=== PATIENT | male | born 1935 | race Caucasian/White ===

== ENCOUNTER 2019-10-21 18:35 | Inpatient (IN) | payer BC ==
[~2019-10-21] VITALS: Ht 180.3 cm; Wt 96.9 kg
[2019-10-21] MEDS: SODIUM CHLORIDE 0.9% 1,000 ML IV SCH (01:00)
[~2019-10-21 18:35] MED LIST: FLUT250M2 INH
[2019-10-21] MEDS ORDERED: ATROPINE SULF 1 MG/10ml SYR IV ONE ×2 (19:30→21:45)
[2019-10-21 19:52] LABS: Basophils # (auto) 0 10 ^3/uL (0-0.2); Basophils % (auto) 0.3 % (0.0-2.0); Eosinophils # (auto) 0.3 10 ^3/uL (0-0.8); Eosinophils % (auto) 3.6 % (0.0-7.0); Hematocrit 47.1 % (41.0-53.0); Hemoglobin 15.4 g/dL (13.5-17.5); Lymphocytes # (auto) 1.4 10 ^3/uL (0.4-5.4); Lymphocytes % (auto) 18.2 % (10.0-50.0); Mean Corpuscular Hemoglobin 29.3 pg (28.0-32.0); Mean Corpuscular Hgb Conc. 32.7 g/dL (32.0-36.0); Mean Corpuscular Volume 89.4 fL (80.0-100.0); Monocytes # (auto) 0.5 10 ^3/uL (0-1.3); Monocytes % (auto) 6.3 % (0.0-12.0); Neutrophils # (auto) 5.6 10 ^3/uL (1.6-8.6); Neutrophils % (auto) 71.6 % (37.0-80.0); Nucleated Red Blood Cells % 0.2 %; Platelet Count (auto) 133 10^3/uL (140-450); Red Blood Cells 5.27 10^6/uL (4.5-5.90); Red Cell Distribution Width 14.6 % (11.8-14.3); White Blood Cell 7.8 10^3/uL (4.4-10.8)
[2019-10-21 20:04] LABS: Albumin 3.5 g/dL (3.4-5.0); Anion Gap 6 (5-15); Blood Urea Nitrogen 21 mg/dL (7-18); Calcium 8.7 mg/dL (8.5-10.1); Carbon Dioxide 26 mmol/L (21-32); Chloride 109 mmol/L (98-107); Glucose 125 mg/dL (74-106); Potassium 4.4 mmol/L (3.5-5.1); Sodium 141 mmol/L (136-145)
[2019-10-21 20:07] LABS: INR 1.02 (0.9-1.15); Partial Thromboplastin Time 24.7 sec (23.64-32.05)
[2019-10-21 20:08] LABS: Alanine Aminotransferase 23 U/L (16-61); Alkaline Phosphatase 70 U/L (45-117); Aspartate Aminotransferase 21 U/L (15-37); BUN/Creatinine Ratio 17.1; Bilirubin, Total 1.5 mg/dL (0.2-1.0); GFR African American 72 mL/min; GFR Non-African American 60 mL/min; Total Protein 7.4 g/dL (6.4-8.2)
[2019-10-21] MEDS ORDERED: CALCIUM CHL 100MG/ML 1,000 MG in D5W 5% 100 ML IV ONE (20:45)
[2019-10-21] MEDS ORDERED: CALCIUM CHLOR(10%) 100MG/ML 10ML SYRINGE IV ONE (20:54)
[2019-10-21] MEDS ORDERED: ONDANSETRON HCL 4 MG/2 ML VIAL IV PRN (21:30)
[2019-10-21] MEDS ORDERED: DOCUSATE SOD 100 MG CAP PO PRN (21:30)
[2019-10-21] MEDS ORDERED: NITROGLYCERIN 0.4 MG SL TAB SL PRN (21:30)
[2019-10-21] MEDS ORDERED: MORPHINE SULF INJ 2 MG/ML SYRINGE 1ML IV PRN (21:30)
[2019-10-22] VITALS (55 sets, daily range): BP systolic 46–175; BP diastolic 20–109
--- NOTE | 2019-10-22 01:00 | NUR ---
Admit to ICU from [facility] admitted to ICU via [place] on athletic monitor. Patient transfered to bed,connected to monitors. Patient connected to ICU monitoring, weighed by bedscale, oriented to AUGUSTO HERRERA RN primary RN, unit. Patient has a heart rate of 26 upon arrival. RN closely monitoring patient on monitors. Patient currently complaining of no discomfort or distress, nor of any chest pain, light headedness or headache.
--- NOTE | 2019-10-22 01:20 | NUR ---
Hospitalist paged: Hospitalist was paged d/t patient continues to have a heart rate of 29 and a blood pressure of 46/27. New orders were obtained and verified.
[2019-10-22] MEDS ORDERED: DOBUTamine 1000MCG/ML 250 ML IV ONE (01:21)
[2019-10-22] MEDS ORDERED: ATROPINE SULFATE 1 MG/1 ML VIAL ONE (01:23)
[2019-10-22] MEDS: DOBUTamine 1000MCG/ML 250 ML IV SCH ×2 (01:30→07:13)
--- NOTE | 2019-10-22 02:00 | NUR ---
Patient continues with a irregular heart that ranges from the high 20's to high 40's and currently has a rate of 47. Patient remains asymptomatic at this time and RN continues to monitor and assess patient closely.
[2019-10-22 02:35] LABS: Calcium 8.6 mg/dL (8.5-10.1); Potassium 3.9 mmol/L (3.5-5.1)
[2019-10-22 02:38] LABS: BUN/Creatinine Ratio 15.7
--- NOTE | 2019-10-22 03:00 | NUR ---
Patient continues to be placed on supplemental oxygen at this time. Patient was noted to take off pulse ox. RN placed new pulse ox on patient and secured with co-band.
--- NOTE | 2019-10-22 03:40 | NUR ---
Oxygen: Patient was noted to de-sat to 86% on 2L NC. Patient was increased to 4L. Oxygen was noted to increase to 95%.
--- NOTE | 2019-10-22 04:00 | NUR ---
Patient continues with a irregular heart that ranges from the high 30's to high 50's and currently has a rate of 45. Patient remains asymptomatic at this time and RN continues to monitor and assess patient closely.
[2019-10-22] MEDS ORDERED: DONE10TA40 PO (04:03)
--- NOTE | 2019-10-22 05:45 | NUR ---
Patient continues with a irregular heart that ranges from the high 20's to high 40's and currently has a rate of 40. Patient remains asymptomatic at this time and RN continues to monitor and assess patient closely.
--- NOTE | 2019-10-22 07:45 | NUR ---
O2 SATS 98% ON O2 5L N/C. NO SOB. LUNGS CLEAR COTY. INSPIRATORY AND EXPIRATORY. DECREASED O2 TO 3L N/C, ADDED HUMIDIFIER. O2 SATS REMAIN 97%-98%. NO SIGNS OF RESP. DISTRESS
--- NOTE | 2019-10-22 09:15 | NUR ---
TECH AT BS FOR 2D ECHO.
--- NOTE | 2019-10-22 10:05 | NUR ---
DR. MCINTYRE Provider/Hospitalist at bedside. GAVE UPDATE ON PT. NEW ORDERS RECEIVED.
--- NOTE | 2019-10-22 10:22 | NUR ---
Avila catheter insertion Patient assessed and determined to be in need of avila catheter. Order obtained from DR. MIGUELINA TORO. Patient educated on catheter and reason for insertion. All questions answered. Avila catheter 16 guage Ethiopian inserted with clean sterile technique. Patient tolerated well.
--- NOTE | 2019-10-22 11:13 | NUR ---
ROQUE VALLECILLO HERE FOR CARDIO CONSULT. SPOKE WITH PT'S. AT AND GAVE UPDATE. SAID PT. WILL HAVE PPM INSERTION ON THIS COMING MON. AND TO HAVE SIGN CONSENTS, PT. HAS HX. OF DEMENTIA AND IS ONLY ORIENTED TO SELF AT THIS TIME.
[2019-10-22] MEDS ORDERED: DOPamine 1600MCG/ML D5W 250 ML IV SCH (11:15)
--- NOTE | 2019-10-22 11:20 | NUR ---
Family updated on pt status Family of OSMEL GALEANO updated on patient's status and condition. All questions and concerns addressed. verbalized understanding. VISITING AT WITH PERMISSION OF MADELYN STARK AUTO PARTS CLERK SILK SCREENER APPROVED FOR 1 FAMILY MEMBER TO VISIT WHICH IS HIS . DGT. IN LAW CALLED ME THIS AM AND WANTED TO VISIT, EXPLAINED THERE IS NO VISITING AT THIS TIME. SHE WANTED TO SPEAK WITH ADMINISTRATION AND INFORMED HER SHE NEEDS TO CALL [facility] AND SPEAK WITH METAL MACHINIST ON TODAY. MADELYN HURTADOLINE CAMERA OPERATOR SPOKE WITH MI REGARDING DTG. IN LAW WANTING TO VISIT PT. AND REQUESTED TO SPEAK WITH ADMINISTRATION AFTER SHE SPOKE WITH HER ON THE PHONE SHE SAID. MADELYN HURTADOLINE CAMERA OPERATOR SPOKE WITH JAIMEG. IN LAW ON THE PHONE WHEN SHE CALLED HER THIS AM WANTING TO VISIT PT. AND EXPLAINED POLICY THAT THE HOSPITAL IS NOT ALLOWING ANY VISITORS AT THIS TIME UNLESS END OF LIFE.
[2019-10-22 11:32] LABS: Urine Bacteria NONE SEEN /hpf (None Seen); Urine Blood TRACE /uL (Negative); Urine Mucus FEW (None Seen); Urine Specific Gravity 1.016 (1.001-1.035); Urine WBC 2 /hpf (0 - 3)
--- NOTE | 2019-10-22 11:55 | NUR ---
SIGNED CONSENTS FOR PPM INSERTION AND ANESTHESIA CONSENT FOR MODERATE SEDATION. PT. HAS HX. OF DEMENTIA AND CAN NOT SIGN FOR SELF.
--- NOTE | 2019-10-22 12:12 | NUR ---
DR. DODSON Provider/Hospitalist at bedside. GAVE UPDATE ON PT. ORDER TO D'C DOBUTAMINE GTT. AND PLACE PT. ON DOPAMINE GTT. AND TITRATE TO KEEP HR >60. PT. WAS TAKEN OFF DOBUTAMINE GTT. AND TITRATED UP TO 20 MCG. OF DOPAMINE GTT. IV. PT'S. HR CONTINUES TO BE IN THE MID TO UPPER 30'S TO LOW 40'S, 3RD. DEGREE AV BLOCK. SBP 90'S TO 120'S. DR. DODSON SAID HE WANTS PT. TO HAVE PPM TODAY AROUND 1300. [facility] PHYSICAL THERAPY TECHNICIAN NOTIFIED AND IS CALLING IN ANIMAL CARE GIVER TEAM. PT. HAS BEEN NPO SINCE ADMISSION, HAD FEW SIPS OF WATER LATE THIS AM.
[2019-10-22] MEDS ORDERED: VANCOMYCIN 1GM/250ML 250 ML IV ONE (13:15)
[2019-10-22] MEDS ORDERED: fentaNYL CITRATE 100 MCG/2 ML VL ONE (13:15)
[2019-10-22] MEDS ORDERED: LIDOCAINE 2%HCL (LOCAL ANESTH.) INJ 20ML MDV ONE (13:15)
[2019-10-22] MEDS ORDERED: MIDAZOLAM HCL 1MG/1ML-2 ML VIAL ONE (13:15)
[2019-10-22] MEDS ORDERED: IOHEXOL 350 MG/ML 100ML IJ ONE (13:15)
--- NOTE | 2019-10-22 13:45 | NUR ---
SIGNED CONSENTS FOR PPM INSERTION. MADELYN CHRISTOPHER HERE TO TAKE PT. TO FULL FASHIONED GARMENT KNITTER, GAVE REPORT. PT. IS ON DOPAMINE GTT. AT 20 MCG. HR 30'S, 3RD. DEGREE AV BLOCK. PT. IS NPO. TO FULL FASHIONED GARMENT KNITTER VIA BED ON [employer], O2 3L N/C.
[2019-10-22] MEDS: SODIUM CHLORIDE 0.9% 1,000 ML IV SCH ×2 (14:02→17:55)
[2019-10-22] MEDS ORDERED: VANCOMYCIN HCL 1000 MG VL ONE (14:11)
--- NOTE | 2019-10-22 15:17 | NUR ---
PT. RETURNED FROM GENERAL ASSEMBLER INSTALLER VIA BED, ATTACHED TO MANAGER SCHEDULING, O2 3L N/C. PPM TO LT. UPPER CHEST WITH DERMABOND TO SITE, WELL APPROXIMATED, OPEN TO AIR PER MD, NO ECCHYMOSIS, NO SWELLING, NO BLEEDING. ICE PACK TO LT. CHEST PPM SITE. LT. ARM IN SLING. PT. HAS HX. OF DEMENTIA, ORIENTED TO SELF ONLY, VERY FORGETFUL, DOES NOT FOLLOW INSTRUCTIONS. PACED 100%, HR IN THE 70'S. SBP 100'S. DOPAMINE GTT. BEING TITRATED OFF IN THE GENERAL ASSEMBLER INSTALLER, WILL CONTINUE TO TITRATE OFF. VSS.
--- NOTE | 2019-10-22 15:55 | NUR ---
PACED 100%, HR IN THE 70'S. SBP 100'S TO ONE TENS. TITRATED DOPAMINE GTT. OFF. MONITORING HR AND BP. PT. IS CONTINUOUSLY TAKING LT. ARM OUT OF SLING AND REMOVING ICE PACK TO LT. CHEST. PT. IS RESTLESS AT TIMES. DOES NOT FOLLOW COMMANDS OR COMPREHEND, HX. OF DEMENTIA, ORIENTED TO SELF ONLY AT THIS TIME.
--- NOTE | 2019-10-22 16:15 | NUR ---
PT. KEEPS REMOVING LT. ARM OUT OF SLING AND REACHING WITH LT. ARM. SM. BRUISE NOTED TO PACEMAKER SITE. PLACED ARM BACK IN SLING AGAIN, ICE PACK TO LT. CHEST IN PLACE. REDIRECTED PT., VERY FORGETFUL, ORIENTED TO SELF ONLY AT THIS TIME.
--- NOTE | 2019-10-22 16:20 | NUR ---
Called/paged Dr. MCINTYRE called re:. Waiting for call back. Continue care.
--- NOTE | 2019-10-22 16:45 | NUR ---
returned call Dr. MCINTYRE returned call AFTER 2ND. PAGE, updated on patient status and reason for call, orders received. Continue care.
--- NOTE | 2019-10-22 18:23 | NUR ---
ORDER TO GO TO TELE WITH SITTER. REPORT GIVEN TO MADELYN LEWIS. BELONGINGS WITH PT. VIA BED ON TELE#38, O2 3L N/C. WILL CALL PT'S. .
--- NOTE | 2019-10-22 19:30 | NUR ---
End of shift note Care of patient endorsed to MADELYN Crowley. No s/s of distress noted at this time.
[2019-10-22] MEDS: HYDROcodone-ACET 5/325MG TAB PO PRN (20:11)
[2019-10-22] MEDS: ACETAMINOPHEN 325 MG TAB PO PRN (22:49)
--- NOTE | 2019-10-23 | NUR ---
PT HAD SMALL BM;PERICARE AND NEW LINEN WITH PT REPOSITIONED;TOLERATED WELL.
[2019-10-23 05:00] VITALS: BP 132/90
[2019-10-23 06:56] LABS: Basophils # (auto) 0 10 ^3/uL (0-0.2); Basophils % (auto) 0.3 % (0.0-2.0); Eosinophils # (auto) 0.2 10 ^3/uL (0-0.8); Eosinophils % (auto) 1.9 % (0.0-7.0); Hemoglobin 14.2 g/dL (13.5-17.5); Lymphocytes % (auto) 12.1 % (10.0-50.0); Mean Corpuscular Hemoglobin 29.9 pg (28.0-32.0); Mean Corpuscular Hgb Conc. 33.8 g/dL (32.0-36.0); Mean Corpuscular Volume 88.7 fL (80.0-100.0); Monocytes # (auto) 0.7 10 ^3/uL (0-1.3); Monocytes % (auto) 7.7 % (0.0-12.0); Neutrophils # (auto) 6.7 10 ^3/uL (1.6-8.6); Nucleated Red Blood Cells % 0.1 %; Platelet Count (auto) 108 10^3/uL (140-450); Red Blood Cells 4.73 10^6/uL (4.5-5.90); Red Cell Distribution Width 14.3 % (11.8-14.3); White Blood Cell 8.6 10^3/uL (4.4-10.8)
[2019-10-23 07:13] LABS: Albumin 3.2 g/dL (3.4-5.0); Calcium 8.2 mg/dL (8.5-10.1); Potassium 3.8 mmol/L (3.5-5.1)
[2019-10-23 07:15] LABS: Bilirubin, Total 2.7 mg/dL (0.2-1.0); Total Protein 6.7 g/dL (6.4-8.2)
[2019-10-23 07:40] LABS: BUN/Creatinine Ratio 15.7
--- NOTE | 2019-10-23 07:40 | NUR ---
Opening shift note Assumed care of patient from NOC RN Carline. Patient is AOx1, no s/s of distress noted at this time. Bed is in lowest locked position, side rails up x2, and health safety coordinator Juhi is at bedside. Updated patient on plan of care and patient was unable to verbalize understanding, reinforcement and reorientation is needed. I will continue to monitor Q1hr and PRN.
[2019-10-23 09:33] VITALS: BP 148/63
--- NOTE | 2019-10-23 11:20 | NUR ---
Physician rounding Dr. Clark at bedside. updated him on patient status. New orders received.
[2019-10-23] MEDS ORDERED: amLODIPine BESYLATE 5 MG TAB PO ONE (12:45)
--- NOTE | 2019-10-23 12:46 | NUR ---
Physician rounding Dr. Pollock at bedside. Updated him on patient status, new orders received. I will follow through with MD orders.
[2019-10-23 13:02] VITALS: BP 167/87
--- NOTE | 2019-10-23 13:30 | NUR ---
Applied cooling measures for a temperature of 99.6. I will continue to monitor Q1hr and PRN.
--- NOTE | 2019-10-23 14:15 | NUR ---
Temperature Reassessment: With cooling measures in place temperature remains increased at 99.2. I will continue to monitor Q1hr and PRN.
[2019-10-23] MEDS: ACETAMINOPHEN 325 MG TAB PO PRN (15:18)
[2019-10-23 16:32] VITALS: BP 115/79
--- NOTE | 2019-10-23 19:15 | NUR ---
End of shift note: Endorsed care of patient to NOC MADELYN Phelps. No s/s of distress noted at this time.
--- NOTE | 2019-10-23 20:32 | NUR ---
900 REPORT RECEIVED ON PATIENT. 1999.PATIENT SEEN AND ASSESSED. CONFUSED. SITTER AT THE BED SIDE. PULLING ON TUBES. MARIE CATHETER IN PLACE. SECURED. CLEAR URINE IN BAG. HEART RHYTHYM PACED AT 85 BEATS PER MINUTE.
[2019-10-23 22:00] VITALS: BP 136/96
[2019-10-23] MEDS ORDERED: DONEPEZIL HYDROCHLORIDE 5 MG TAB PO SCH (22:00)
[2019-10-23] MEDS: LORazepam 0.5 MG TAB PO PRN (23:03)
[2019-10-23] MEDS: HYDROcodone-ACET 5/325MG TAB PO PRN (23:03)
[2019-10-24] MEDS: SODIUM CHLORIDE 0.9% 1,000 ML IV SCH ×2 (00:33→15:35)
[2019-10-24 05:00] VITALS: BP 134/81
--- NOTE | 2019-10-24 07:20 | NUR ---
Opening shift note Assumed care of patient from NOC RN Lenin. Patient is AOx1, no s/s of distress noted at this time. Bed is in lowest locked position, side rails up x2, and safety deposit boxes custodian Siena is at bedside. Updated patient on plan of care and patient was unable to verbalize understanding, reinforcement is needed. I will continue to monitor Q1hr and PRN.
[2019-10-24] MEDS: ADENOSINE 78 MG in GIVE UN-DILUTED 0 ML IV STA ×2 (08:45→10:37)
[2019-10-24 09:00] VITALS: BP 146/92
[2019-10-24 09:35] LABS: Folate (Folic Acid) 2.2 ng/mL (5.38-24)
--- NOTE | 2019-10-24 10:00 | NUR ---
Patient is refusing stress test. Educated patient on risk of refusing, patient verbalized understanding. Patient stated that he has had one done recently but cannot remember where.
[2019-10-24] MEDS: amLODIPine BESYLATE 5 MG TAB PO SCH (10:24)
--- NOTE | 2019-10-24 10:40 | NUR ---
Physician Rounding: Dr. Ricci at bedside. Updated him on patient status. New orders received I will follow through with orders.
--- NOTE | 2019-10-24 10:45 | NUR ---
Oxygen saturation assessment: Assessed patient on room air, patients saturation is at 96%, so signs and symptoms of distress noted. I will continue to monitor Q1hr and PRN.
[2019-10-24 11:11] LABS: Basophils # (auto) 0 10 ^3/uL (0-0.2); Basophils % (auto) 0.4 % (0.0-2.0); Eosinophils # (auto) 0.3 10 ^3/uL (0-0.8); Eosinophils % (auto) 3.5 % (0.0-7.0); Hematocrit 41.9 % (41.0-53.0); Lymphocytes # (auto) 0.9 10 ^3/uL (0.4-5.4); Lymphocytes % (auto) 10.9 % (10.0-50.0); Mean Corpuscular Hemoglobin 29.5 pg (28.0-32.0); Mean Corpuscular Hgb Conc. 33.4 g/dL (32.0-36.0); Mean Corpuscular Volume 88.5 fL (80.0-100.0); Monocytes # (auto) 0.6 10 ^3/uL (0-1.3); Neutrophils # (auto) 6.4 10 ^3/uL (1.6-8.6); Neutrophils % (auto) 78.2 % (37.0-80.0); Nucleated Red Blood Cells % 0.3 %; Platelet Count (auto) 111 10^3/uL (140-450); Red Blood Cells 4.74 10^6/uL (4.5-5.90); Red Cell Distribution Width 14.3 % (11.8-14.3); White Blood Cell 8.2 10^3/uL (4.4-10.8)
[2019-10-24 11:27] LABS: INR 1.07 (0.9-1.15); Partial Thromboplastin Time 32.7 sec (23.64-32.05)
[2019-10-24 11:29] LABS: BUN/Creatinine Ratio 17.7; Calcium 8.3 mg/dL (8.5-10.1); Potassium 3.8 mmol/L (3.5-5.1)
--- NOTE | 2019-10-24 11:30 | NUR ---
Oxygen saturation reassessment: Assessed patient on room air,patient is sleeping. patients saturation is at 90% no signs and symptoms of distress or shortness of breath noted. I will continue to monitor Q1hr and PRN.
--- NOTE | 2019-10-24 12:50 | NUR ---
Oxygen saturation reassessment: Assessed patient on room air,patient is sleeping. patients saturation is at 93% no signs and symptoms of distress or shortness of breath noted. I will continue to monitor Q1hr and PRN.
--- NOTE | 2019-10-24 12:55 | NUR ---
Cooling measures Applied cooling measures for a temperature of 99.6. I will continue to monitor Q1hr and PRN.
[2019-10-24 13:00] VITALS: BP 140/78
--- NOTE | 2019-10-24 15:15 | NUR ---
Oxygen saturation reassessment: Assessed patient on room air. patients saturation is at 93% no signs and symptoms of distress or shortness of breath noted. I will continue to monitor Q1hr and PRN.
--- NOTE | 2019-10-24 15:50 | NUR ---
Avila catheter dc'd Order to discontinue avila catheter. Avila dc'd with clean technique following deflation of balloon. Patient tolerated well with no complaints of pain. Continue care.
--- NOTE | 2019-10-24 16:04 | NUR ---
Nutrition Assessment Notes Please refer to link for full assessment notes. Est Energy needs: [address] kcals (20-23 kcal/kgBW) Est Protein needs: 93-103 gms/day (1.0-1.1 gm/kgBW) Will continue to monitor and reassess prn. Addendum: 10/24/19 at [address] Amended: Links added.
[2019-10-24 17:00] VITALS: BP 154/80
--- NOTE | 2019-10-24 19:20 | NUR ---
End of shift note Endorsed care to NOC RN Mark. No signs and symptoms of distress noted at this time.
--- NOTE | 2019-10-24 19:35 | NUR ---
Opening shift note Assumed care of patient. Patient is awake and oriented x 2. No signs/symptoms of respiratory distress/shortness of breath noted, SpO2 94% on RA. Patient reports no pain. Bed is in lowest position, brakes are locked, side rails up x2, bed alarm is on, and call light is within reach. Sitter at bedside for safety measures. R. IJ ans R. peripheral IV sites are asymptomatic and patent. Plan of care was verbalized to the patient. Patient was unable to fully understand. Reinforcement is needed. Will continue to monitor Q1hr and PRN.
[2019-10-24] MEDS: LORazepam 0.5 MG TAB PO PRN (21:33)
[2019-10-24 22:00] VITALS: BP 155/89
--- NOTE | 2019-10-24 23:57 | NUR ---
[facility] patient's potassium is 3.0 on 10/23/19 at 13:40. patient was given Potassium ER PO on 10/22. Potassium had not been rechecked since then. patient is currently asymptomatic. VS is within normal limits. Addendum: 10/25/19 at 0003 by GODWIN GARCIA RN RN Wrong patient
[2019-10-25 05:00] VITALS: BP 135/78
--- NOTE | 2019-10-25 05:13 | NUR ---
Spoke to Nneka, patient's [id number], and gave her a brief update regarding his status and plan of care. Nneka wanted me to ask hospitalist to call and notify patient's , Mireya, of plan of care. They state that they have not been notified of anything from the MDs since patient was admitted on 10/21/19. I told Nneka I would endorse it to day shift RN to let hospitalist know.
[2019-10-25 07:04] LABS: Basophils # (auto) 0 10 ^3/uL (0-0.2); Basophils % (auto) 0.4 % (0.0-2.0); Eosinophils # (auto) 0.3 10 ^3/uL (0-0.8); Eosinophils % (auto) 3.4 % (0.0-7.0); Hematocrit 42.4 % (41.0-53.0); Hemoglobin 14.4 g/dL (13.5-17.5); Lymphocytes # (auto) 1.4 10 ^3/uL (0.4-5.4); Lymphocytes % (auto) 16.2 % (10.0-50.0); Mean Corpuscular Hemoglobin 29.9 pg (28.0-32.0); Mean Corpuscular Hgb Conc. 33.9 g/dL (32.0-36.0); Mean Corpuscular Volume 88.1 fL (80.0-100.0); Monocytes # (auto) 0.7 10 ^3/uL (0-1.3); Monocytes % (auto) 7.9 % (0.0-12.0); Neutrophils # (auto) 6.2 10 ^3/uL (1.6-8.6); Neutrophils % (auto) 72.1 % (37.0-80.0); Nucleated Red Blood Cells % 0.3 %; Platelet Count (auto) 125 10^3/uL (140-450); Red Blood Cells 4.81 10^6/uL (4.5-5.90); White Blood Cell 8.6 10^3/uL (4.4-10.8)
[2019-10-25 07:16] LABS: BUN/Creatinine Ratio 20.3; Calcium 8.5 mg/dL (8.5-10.1); Potassium 3.6 mmol/L (3.5-5.1)
[2019-10-25 09:00] VITALS: BP 169/77
[2019-10-25 09:48] VITALS: BP 153/73
[2019-10-25 13:00] VITALS: BP 152/56
--- NOTE | 2019-10-25 13:06 | NUR ---
BEAUTY CULTURIST AT BEDSIDE, HE REPORTS HE IS UNABLE TO GET A GOOD READING FOR EEG, HE REPORTS THERE'S TOO MUCH ARTIFACT. PT UNABLE TO KEEP HIS EYES CLOSED AND COMPLETELY RELAX.
--- NOTE | 2019-10-25 13:12 | NUR ---
ELECTROENCEPHALOGRAM UNABLE TO COMPLETE EEG. PT RESTLESS AND TAKING LEADS OFF. PRIMARY RN AWARE.
[2019-10-25] MEDS: SODIUM CHLORIDE 0.9% 1,000 ML IV SCH (13:57)
[2019-10-25] MEDS: amLODIPine BESYLATE 5 MG TAB PO SCH (13:58)
[2019-10-25] MEDS: FOLIC ACID 1 MG in D5W 5% 50 ML INJ SCH (13:58)
--- NOTE | 2019-10-25 14:07 | NUR ---
NOTIFIED DR MCINTYRE PT ANXIOUS AND ATIVAN MAKES PT CONFUSED,. MD AWARE. NOTIFIED PT BP RUNNING IN 150'S. NEW ORDERS FOR PRN CLONIDINE, WILL CONTINUE TO MONITOR.
[2019-10-25] MEDS ORDERED: cloNIDine HCL 0.1 MG TAB PO PRN (14:15)
--- NOTE | 2019-10-25 14:33 | NUR ---
PATIENT AMBULATED IN HALLWAY WITH PHYSICAL THERAPY AND WALKER.
--- NOTE | 2019-10-25 15:14 | NUR ---
assessment Patient is a 83 year old male whop is confused. Per patients Mireya prior to admission patient lived home with her and family and functioned independently. Per Mireya this is new confusion. Patient has no DME at home. Patients PCP is Dr gates. Per PT patient is mod to max assist. Mireya is refusing SNF. Per Mireya patient will return home on discharge and she will have help for him at home. Patient will benefit from home health for PT on discharge. Mireya verbalized understanding and agreed to discharge plan home. Addendum: 10/25/19 at 1517 by Tonia BREEN Amended: Links added.
--- NOTE | 2019-10-25 15:27 | NUR ---
D/C Planning Per SS consult for home health safety evaluation and physical therapy. Faxed clinical information to [facility] and [facility]. Per Tonya with [facility] they are not contracted with patient health plan. Per Vinnie with [facility] they patient has been accepted and service to start within 24-48hrs upon d/c day.
[2019-10-25 17:00] VITALS: BP 142/68
--- NOTE | 2019-10-25 18:15 | NUR ---
NOTIFIED TANMAY JOSHI PT PULLED OUT LEFT IJ. NOTIFIED HIM TO CALL AND NOTIFY HOSPITALIST. TANMAY AWARE. Addendum: 10/26/19 at 0624 by RENATO DIAZ RN ENTERED WRONG TIME, NOTIFCHIOMA DONATO AT 2015.
--- NOTE | 2019-10-25 18:41 | NUR ---
PT DAUGHTER IN LAW CALLED AND REPORTS SHE WANTS TO BRING PATIENT HOME. SHE REPORTS THE PATIENT IS VERY CONFUSED AND SHE IS AFRAID HE WILL BECOME MORE CONFUSED THE LONGER HE IS IN THE HOSPITAL. SHE REPORTS SHE WANTS HIM TO COME HOME HOPING TO PUT PATIENT IN FAMILIAR SURROUNDINGS TO HELP REORIENT HIM. SHE REPORTS SHE WANTS THE HOSPITALIST PAGED TO TRY AND GET THE PATIENT DISCHARGED. DR GLOVER SAW PATIENT, NOTIFIED HIM PT VERY CONFUSED AND PT FAMILY WANTS TO BRING HIM HOME. DR GLOVER REPORTS PT IS TOO CONFUSED TO GO HOME AND IS NOT CLEARED.
--- NOTE | 2019-10-25 18:54 | NUR ---
PAGED HOSPITALIST, DR CARLIN CALLED BACK, NOTIFIED PT FAMILY WANTS TO TAKE PATIENT HOME, AND PATIENT IS VERY CONFUSED. NOTIFIED MD DR GLOVER SAW HIM AND HAS NOT CLEARED HIM FOR DISCHARGE, MD AWARE. CALLED FAMILY BACK AND NOTIFIED DAUGHTER IN LAW JAILYN, PT IS NOT MEDICALLY CLEARED FOR DISCHARGE. JAILYN REPORTS SHE WANTS TO TAKE PATIENT HOME AMA. JAILYN REPORTS SHE IS ABOUT TO GRADUATE FROM THE NURSE PRACTITIONER PROGRAM AND HAS ANOTHER FAMILY MEMBER THAT IS A NURSE THAT WILL ALSO HELP LOOK AFTER HIM, SHE REPORTS, "I HAVE A LOT OF PEOPLE TO HELP." NOTIFIED DR GLOVER PT FAMILY WILL SIGN PT OUT AMA. AWARE.
--- NOTE | 2019-10-25 19:00 | NUR ---
PT PUT IN [place] POSITION, WENT TO DC IJ, IJ PULLED OUT BUT STILL STITCHED TO PT NECK, NO BLOOD NOTED AT SITE OR ON CATHETER. SITE APPEARS CLOSED, 4X4'S AND DRESSING APPLIED TO SITE PRECAUTION. MADELYN COLUNGA REPORTED EARLIER PT ATTEMPTED TO PULL OUT IJ, AND SHE CHANGED THE DRESSING. WILL CONTINUE TO MONITOR. Addendum: 10/26/19 at 0647 by RENATO DIAZ RN IJ CATHETER INTACT, SUTURES REMOVED.
--- NOTE | 2019-10-25 19:15 | NUR ---
Spoke to MD Jimenez and notified him that patient is set to be taken AMA by family.
--- NOTE | 2019-10-25 19:20 | NUR ---
IV removal Right forearm IV discontinued with sterile technique. Catheter is fully intact. Site is asymptomatic. Pressure dressing applied and site is wrapped with Co-band. Patient tolerated procedure well. Will continue to monitor.
--- NOTE | 2019-10-25 19:23 | NUR ---
Opening shift note Assumed care of patient. Patient is awake and oriented x 2. No signs of respiratory distress is noted, SpO2 94% on RA. Respirations are regular and non labored. Bed is in lowest position, brakes are locked, side rails up x 3, bed alarm is on, and call light is within reach. Sitter at bedside for safety measures. No IV site is present at this moment. Plan of care was verbalized to the patient. Patient was unable to fully understand. Reinforcement is needed. Will continue to monitor Q1hr and PRN.
--- NOTE | 2019-10-25 19:47 | NUR ---
ROQUE Carter spoke to Mireya, the of the patient and LAURIE, and informed her that Cardiolite stress test came back positive and that patient should have left heart catheterization on . agreed to keep patient and not take him out AMA. Addendum: 10/25/19 at 2238 by JOSE BAUMANN RN Discharge order from MD Jimenez cancelled.
--- NOTE | 2019-10-25 20:25 | NUR ---
IV insertion IV access obtained, via clean technique by inserting a 20 gauge catheter into a vein in the right forearm after 2 attempts. IV secured properly. No trauma to site. Patient tolerated well. NS infusing once more at ordered rate.
--- NOTE | 2019-10-25 20:48 | NUR ---
Spoke to Benito, patient's granddaughter, and answered all questions they had regarding patient's care. Mireya notified that we will be calling in the morning to get verbal consent with a secondary nurse as witness for left heart catheterization. Addendum: 10/25/19 at 2314 by JOSE BAUMANN RN Benito would like MD Gutiérrez to call and give them an update on patient's neurological status.
[2019-10-25] MEDS: MORPHINE SULF INJ 2 MG/ML SYRINGE 1ML IV PRN (21:41)
[2019-10-25 21:58] VITALS: BP 150/73
--- NOTE | 2019-10-25 22:04 | NUR ---
Received a call from patient's other [id number], Dinora, who was upset that "we are not calling his and keeping her informed. She is this close to having a nervous breakdown." I gave her an update on the patient's care, after confirming password, and told her why ROQUE Carter spoke to Mireya and convinced her to keep patient here. Dinora made a point of saying "I don't like that he's staying at [facility], but I would not want him at [facility] either. It's in God's hands now." I informed her that the patient could be taken from hospital AMA if they family still choses, if they are that concerned for his safety while he is cared for here, that Mireya could still do that at any time should she wish. Dinora stated that her main priority is that her mother is informed. I will speak to Mireya again.
--- NOTE | 2019-10-25 22:10 | NUR ---
Paging hospitalist to notify that day shift RN removed tipple lumen IJ central line and reported that while stitches where intact, the line itself appeared too have been pulled out somewhat prior to removal of line. Day shift nurse expressed concern that line may not have been rmoved completely or that patient may develop PE from removal if line had been pulled out prior to removal. Line was still in patient but had been pulled back. Patient is currently asymptomatic with no trouble breathing and his oxygen saturation is 95%. Addendum: 10/25/19 at 2215 by JOSE BAUMANN RN Triple.
--- NOTE | 2019-10-25 22:31 | NUR ---
Spoke to patient's , Mireya, and asked how often she would like to be notified of the patient's status and any changes. She would like to be notified three times per day. I recommended 0900, 1300, and 1700. film processing shift supervisor RN can also call at 2000 instead, if she would prefer. I also asked, if possible, for other patient's family member questions to be relayed to us at that time. I informed her that I spoke to MD Gutiérrez and that he does not believe the short period of time the patient has stayed in hospital should lead to any permanent changes in patient's memory or mentation when he returns home.
--- NOTE | 2019-10-25 22:37 | NUR ---
Spoke to hospitalist. No orders given.
[2019-10-26] VITALS (7 sets, daily range): BP systolic 135–147; BP diastolic 62–89
[2019-10-26] MEDS: SODIUM CHLORIDE 0.9% 1,000 ML IV SCH ×2 (01:25→12:19)
[2019-10-26] MEDS: MORPHINE SULF INJ 2 MG/ML SYRINGE 1ML IV PRN (02:24)
--- NOTE | 2019-10-26 04:48 | NUR ---
Spoke to Nneka and gave her an update on the patient's care after confirming password.
[2019-10-26 07:09] LABS: Basophils # (auto) 0 10 ^3/uL (0-0.2); Basophils % (auto) 0.6 % (0.0-2.0); Eosinophils # (auto) 0.3 10 ^3/uL (0-0.8); Eosinophils % (auto) 4.8 % (0.0-7.0); Hematocrit 41.2 % (41.0-53.0); Lymphocytes # (auto) 1.2 10 ^3/uL (0.4-5.4); Lymphocytes % (auto) 18.1 % (10.0-50.0); Mean Corpuscular Hgb Conc. 33.9 g/dL (32.0-36.0); Mean Corpuscular Volume 88.5 fL (80.0-100.0); Monocytes # (auto) 0.6 10 ^3/uL (0-1.3); Monocytes % (auto) 8.4 % (0.0-12.0); Neutrophils # (auto) 4.6 10 ^3/uL (1.6-8.6); Neutrophils % (auto) 68.1 % (37.0-80.0); Nucleated Red Blood Cells % 0.1 %; Platelet Count (auto) 139 10^3/uL (140-450); Red Blood Cells 4.66 10^6/uL (4.5-5.90); Red Cell Distribution Width 14.1 % (11.8-14.3); White Blood Cell 6.8 10^3/uL (4.4-10.8)
[2019-10-26 07:29] LABS: BUN/Creatinine Ratio 29.2; Calcium 8.2 mg/dL (8.5-10.1); Potassium 3.4 mmol/L (3.5-5.1)
--- NOTE | 2019-10-26 08:55 | NUR ---
CALLED PT AND UPDATED HER ON PLAN OF CARE. CARLOS AWARE PT TO HAVE LEFT HEART CATH TOMORROW, BUT SHE REPORTS THE DOCTOR HAS NOT GONE OVER THE PROCEDURE WITH HER. WILL HOLD SIGNING CONSENTS WITH WITNESS.
--- NOTE | 2019-10-26 08:59 | NUR ---
PAGED DR RAINES TO NOTIFY HER PT FAMILY NEEDS TO BE EDUCATED ON RISKS AND BENEFITS OF LHC.
[2019-10-26] MEDS: FOLIC ACID 1 MG in D5W 5% 50 ML INJ SCH (10:05)
[2019-10-26] MEDS: amLODIPine BESYLATE 5 MG TAB PO SCH (10:07)
--- NOTE | 2019-10-26 10:15 | NUR ---
RN hold due to significant decrease in pt level of alertness. Addendum: 10/26/19 at 1200 by Fidel Lyons CREDIT OFFICER Amended: Links added.
[2019-10-26] MEDS ORDERED: POTASSIUM EFFERVESENT TAB 25 MEQ PO ONE (10:30)
--- NOTE | 2019-10-26 10:43 | NUR ---
DR MCINTYRE SAW PATIENT AND DISCUSSED POC. NOTIFIED MD EEG COULD NOT BE DONE PATIENT WS NOT ABLE TO HOLD STILL. NOTIFIED MD TO CALL PT AND PT HAVING A LHC TOMORROW. AWARE. CALLED PBX AND PAGED DR DODSON. AWAITING CALL BACK.
--- NOTE | 2019-10-26 10:47 | NUR ---
DR DODSON CALLED BACK, HE REPORTS HE MAY BE ABLE TO DO PROCEDURE TODAY. ASKED DR DODSON TO CALL PT FAMILY AND EXPLAIN PROCEDURE. MD AWARE, MD REPORTS TO KEEP PT NPO FOR NOW.
--- NOTE | 2019-10-26 12:28 | NUR ---
Nutrition Followup Notes WT: 96.0 kg Pt was sleeping with no family by garrettcara. per pt records pt sp pacemaker. pt with no distress noted. pt is currently on cardiac diet with inadequate PO of < 50% x 5 per RN doc Est Energy needs: [address] kcals (20-23 kcal/kgBW), Est Protein needs: 93-103 gms/day (1.0-1.1 gm/kgBW). Will continue to monitor and reassess prn. LABS: CA 8.2 L, BUN 21 H GI: pt had 1 BM today per RN doc BS: skin score 19 low risk PES: Altered nutrition related lab values r.t current chronic medical condition aeb hyperchloremia, hypocalcemia, hyperglycemia, mild hypoalbuminemia Will continue to closely monitor pertinent labs, PO intake and skin status prn. Will followup in 3-5 days Rec: 1) Continue to closely monitor pt PO intake to meet at least 75% of meals. 2) Continue current plan of care
--- NOTE | 2019-10-26 12:32 | NUR ---
DR DODSON AND CHARGE SIGNED CONSENTS, ISH WITNESSED.
--- NOTE | 2019-10-26 14:37 | NUR ---
TOOK PATIENT TO MOLD RUNNER VIA BED AND STAFF, NO DISTRESS NOTED. Addendum: 10/26/19 at 1441 by RENATO DIAZ RN CALLED FAMILY AND NOTIFIED THEM PT WENT FOR PROCEDURE.
[2019-10-26] MEDS ORDERED: ANGIOMAX 250 MG VIAL IV ONE (15:43)
[2019-10-26] MEDS ORDERED: LIDOCAINE 2%HCL (LOCAL ANESTH.) INJ 20ML MDV ONE (15:52)
[2019-10-26] MEDS ORDERED: IOHEXOL 350 MG/ML 100ML IJ ONE (15:52)
--- NOTE | 2019-10-26 16:28 | NUR ---
PM surgical site pt's PM surgical site noted to be red, warm, and tender. Pus noted at medial side of incision, no oozing or bleeding, and Dermabond skin adhesive remains intact. Dr Pollock notified. Verbal order obtained to clean surgical site and apply dressing. Order carried out. No order for culture at this time. Surgical site cleaned aseptically and thoroughly with Providone iodine and chlorhexidine. Sterile dressing applied.
[2019-10-26] MEDS ORDERED: VERAPAMIL 2.5MG/ML INJ 2ML VIAL IV ONE (16:52)
[2019-10-26] MEDS ORDERED: fentaNYL CITRATE 100 MCG/2 ML VL ONE (16:52)
[2019-10-26] MEDS ORDERED: HEPARIN SODIUM (PORCINE) 5000 UNITS/ML 1ML VIAL ONE ×3 (16:52→17:17)
[2019-10-26] MEDS ORDERED: SODIUM CHL 0.9% 0 ML ONE (16:53)
[2019-10-26] MEDS ORDERED: MIDAZOLAM HCL 1MG/1ML-2 ML VIAL ONE (16:53)
[2019-10-26] MEDS ORDERED: NITROGLYCERIN 50MG/250ML 250 ML IV ONE (17:00)
[2019-10-26] MEDS ORDERED: SODIUM CHL 0.9% 50 ML ONE (17:01)
--- NOTE | 2019-10-26 18:35 | NUR ---
PT RETURNED TO FLOOR FROM DIETARY SERVICE AIDE, NO DISTRESS NOTED. PT SLEEPING. PER ELIGIBILITY TECHNICIAN, DR DODSON DID LEFT HEART CATH WHICH IS NEGATIVE, AND NO MEDS WHERE GIVEN DURING PROCEDURE. ELIGIBILITY TECHNICIAN REPORTS SHE NOTED PUS AT PACEMAKER SITE. SHE CLEANED SITE AND APPLIED DRESSING. SHE REPORTS NOT TO CHANGE DRESSING IF DRAINAGE IS NOTED LATER. SHE REPORTS TO NOTIFY DR DODSON IF SITE SHOWS ERYTHEMA OR DRAINAGE AND DR DODSON MAY WANT A SWAB. INCISION LEFT WRIST HAS CLEAR VASC BAND APPLIED, NO DRAINAGE NOTED. 2 MLS AIR WAS REMOVED FROM VASC BAND BY OR NURSE, SHE REPORTS WE CAN START DEFLATING BAND Q 15 MINUTES IF NO BLOOD AT SITE. OR NURSE REPORTS DR DODSON ALREADY CALLED PT FAMILY AND NOTIFIED THEM OF THE RESULTS OF THE PROCEDURE. VITALS: BP 141/89, HR 68, 02 98, RR 16, T 100.2. Addendum: 10/26/19 at 1842 by RENATO DIAZ RN INCISION AND VASC BAND ON RIGHT WRIST
--- NOTE | 2019-10-26 18:48 | NUR ---
DEFLATED ANOTHER 2 MLS AIR FROM VASC BAND, NO BLOOD NOTED AT SITE. INVASIVE CARDIOLOGIST REPORTS PT WOKE UP AND ASKED FOR URINAL AND VOIDED, WILL CONTINUE TO DEFLATE VASC BAND Q 15 MINUTES.
--- NOTE | 2019-10-26 19:15 | NUR ---
PER DAY SHIFT MADELYN MUÑOZ, THE PATIENT'S TEMPERATURE IS 100.2 F. WAS TOLD TO PAGE DR. DODSON IF THE PATIENT HAS DRAINAGE AT PACEMAKER INCISION SITE OR IF THE PATIENT HAS A FEVER. WILL PAGE DR. DODSON AND NOTIFY HIM ABOUT THE PATIENT'S ELEVATED TEMPERATURE.
--- NOTE | 2019-10-26 19:20 | NUR ---
BLOOD HAS BEEN VISUALIZED AFTER DAY SHIFT RN TOOK OUT 2 ML OF AIR. TOTAL AMOUNT OF AIR PREVIOUSLY WAS 6 ML. REINFLATED THE VASC BAND TO 10 ML OF AIR. WILL MONITOR FOR 30 MINUTES BEFORE BEGINNING DEFLATION AGAIN.
--- NOTE | 2019-10-26 19:25 | NUR ---
MD CALL BACK NOTIFIED DR. DODSON ABOUT THE PATIENT'S ELEVATED TEMPERATURE. ORDER RECEIVED FOR VANCOMYCIN 1 GM IV ONCE AND DOXYCYCLINE 100 MG PO BID FOR 10 DAYS.
[2019-10-26] MEDS ORDERED: VANCOMYCIN 1GM/250ML 250 ML IV ONE (19:45)
--- NOTE | 2019-10-26 19:50 | NUR ---
DEFLATED 2 ML OF AIR FROM VASC BAND. NO MORE BLEEDING OBSERVED FROM INCISION SITE. WILL CONTINUE TO DEFLATE VASC BAND Q15 MINUTES.
[2019-10-26] MEDS: ACETAMINOPHEN 325 MG TAB PO PRN (19:55)
--- NOTE | 2019-10-26 20:05 | NUR ---
DEFLATED 2 ML OF AIR FROM VASC BAND. NO BLEEDING OBSERVED FROM INCISION SITE. WILL CONTINUE TO DEFLATE VASC BAND Q15 MINUTES.
--- NOTE | 2019-10-26 20:20 | NUR ---
DEFLATED 2 ML OF AIR FROM VASC BAND. NO BLEEDING OBSERVED FROM INCISION SITE. WILL CONTINUE TO DEFLATE VASC BAND Q15 MINUTES.
--- NOTE | 2019-10-26 20:35 | NUR ---
DEFLATED 2 ML OF AIR FROM VASC BAND. NO BLEEDING OBSERVED FROM INCISION SITE. WILL CONTINUE TO DEFLATE VASC BAND Q15 MINUTES.
--- NOTE | 2019-10-26 20:45 | NUR ---
TEMPERATURE REEVALUATION THE PATIENT'S TEMPERATURE HAS IMPROVED TO 99.4 F. WILL CONTINUE TO MONITOR THE PATIENT'S STATUS.
--- NOTE | 2019-10-26 20:50 | NUR ---
DEFLATED 2 ML OF AIR FROM VASC BAND. NO MORE BLEEDING OBSERVED FROM INCISION SITE. VASC BAND HAS BEEN REMOVED. GAUZE AND TEGADERM HAS BEEN PLACED ON INCISION SITE. PATIENT TOLERATED THE REMOVAL OF THE VASC BAND WELL. WILL CONTINUE TO MONITOR FOR BLEEDING.
[2019-10-26] MEDS: DOXYCYCLINE 100 MG TAB/CAP PO SCH (22:12)
--- NOTE | 2019-10-27 04:35 | NUR ---
RECEIVED CALL FROM PATIENT'S [id number], MAIN WHO WANTED AN UPDATE ON THE PATIENT'S STATUS. DISCUSSED THE PATIENT'S PLAN OF CARE WITH HER. ANSWERED ALL QUESTIONS THAT MAIN HAD.
[2019-10-27 05:00] VITALS: BP 151/69
[2019-10-27 07:09] LABS: Basophils # (auto) 0.1 10 ^3/uL (0-0.2); Basophils % (auto) 0.6 % (0.0-2.0); Eosinophils # (auto) 0.3 10 ^3/uL (0-0.8); Eosinophils % (auto) 4.3 % (0.0-7.0); Hematocrit 43.4 % (41.0-53.0); Hemoglobin 14.9 g/dL (13.5-17.5); Lymphocytes # (auto) 1.2 10 ^3/uL (0.4-5.4); Lymphocytes % (auto) 14.8 % (10.0-50.0); Mean Corpuscular Hemoglobin 29.9 pg (28.0-32.0); Mean Corpuscular Hgb Conc. 34.3 g/dL (32.0-36.0); Mean Corpuscular Volume 87.2 fL (80.0-100.0); Monocytes # (auto) 0.6 10 ^3/uL (0-1.3); Monocytes % (auto) 7.8 % (0.0-12.0); Neutrophils # (auto) 5.9 10 ^3/uL (1.6-8.6); Neutrophils % (auto) 72.5 % (37.0-80.0); Nucleated Red Blood Cells % 0.2 %; Platelet Count (auto) 154 10^3/uL (140-450); Red Blood Cells 4.98 10^6/uL (4.5-5.90); Red Cell Distribution Width 14.3 % (11.8-14.3); White Blood Cell 8.1 10^3/uL (4.4-10.8)
[2019-10-27 07:26] LABS: INR 1.13 (0.9-1.15)
[2019-10-27 07:31] LABS: Calcium 8.4 mg/dL (8.5-10.1); Potassium 3.8 mmol/L (3.5-5.1)
[2019-10-27 07:34] LABS: BUN/Creatinine Ratio 25.3
--- NOTE | 2019-10-27 08:30 | NUR ---
Opening Shift Note Assumed care of patient, awake and alert. No S/S of distress/SOB or pain. Bed in lowest/locked position, bed rails up x2, call light within reach. Instructed on POC and to call for assist PRN. Will continue to monitor for changes Q1hr and PRN.
[2019-10-27 09:00] VITALS: BP 135/73
--- NOTE | 2019-10-27 09:01 | NUR ---
D/C Planning Per SS consult for FWW. LOLA Bateman will obtain authorization. Faxed clinical information to [facility]. Per Funmi with [facility] walker will be deliver to bedside at 12 noon. Informed MADELYN West.
[2019-10-27] MEDS: DOXYCYCLINE 100 MG TAB/CAP PO SCH (09:49)
[2019-10-27] MEDS: amLODIPine BESYLATE 5 MG TAB PO SCH (09:50)
[2019-10-27] MEDS: SODIUM CHLORIDE 0.9% 1,000 ML IV SCH (09:53)
--- NOTE | 2019-10-27 10:34 | NUR ---
I faxed walker order to [facility]-requesting for authorization to be sent to [facility].
[2019-10-27] MEDS: FOLIC ACID 1 MG in D5W 5% 50 ML INJ SCH (11:07)
--- NOTE | 2019-10-27 11:55 | NUR ---
[facility] FWW DELIVERED TO PATIENT. AT BEDSIDE
--- NOTE | 2019-10-27 12:19 | NUR ---
I received a call from Flor at [facility] letting me know that she is sending the authorization to [facility] now for the walker, she will fax me a copy as well.
--- NOTE | 2019-10-27 12:50 | NUR ---
MD ROUNDS DR Ramsey HERNANDEZ AT BEDSIDE DISCUSSING POC WITH PATIENT. NEW ORDERS RECEIVED/ WILL CARRY OUT. WILL CONTINUE TO MONITOR
[2019-10-27 12:59] VITALS: BP 148/74
--- NOTE | 2019-10-27 13:00 | NUR ---
FAMILY UPDATED , CARLOS, ON POC. ALL QUESTIONS ASKED. WILL CONTINUE TO MONITOR
--- NOTE | 2019-10-27 15:52 | NUR ---
Discharge instructions given as ordered. Encourage to follow up with PMD as instructed. All questions and concerns addressed. Patient verbalized understanding. IV removed with catheter intact, pressure dressing applied. Telemetry unit returned to ICU. Patient taken to vehicle via wheelchair with all personal belongings, accompanied by staff. Patient FWW given to family members. No distress noted at time of departure.
== END 2019-10-27 15:50 | disposition home or self-care (01) | DRG 242 ==
LOC: EDBD 18:35 → ER 18:37 → TELE 18:38 → ICU WEST 23:37 → TELE-CENTR 10-22 18:27
PROVIDERS: ADMIT Hospitalist; ATTEND Family Medicine
PROC: 02HV33Z Insertion of Infusion Device into Superior Vena Cava, Percutaneous Approach (ICD-10-PCS; 2019-10-21)
PROC: 0JH606Z Insertion of Pacemaker, Dual Chamber into Chest Subcutaneous Tissue and Fascia, Open Approach (ICD-10-PCS; principal; 2019-10-22)
PROC: 02HK3JZ Insertion of Pacemaker Lead into Right Ventricle, Percutaneous Approach (ICD-10-PCS; 2019-10-22)
PROC: 02H63JZ Insertion of Pacemaker Lead into Right Atrium, Percutaneous Approach (ICD-10-PCS; 2019-10-22)
PROC: 4A023N7 Measurement of Cardiac Sampling and Pressure, Left Heart, Percutaneous Approach (ICD-10-PCS; 2019-10-26)
PROC: B2111ZZ Fluoroscopy of Multiple Coronary Arteries using Low Osmolar Contrast (ICD-10-PCS; 2019-10-26)
PROC: B2151ZZ Fluoroscopy of Left Heart using Low Osmolar Contrast (ICD-10-PCS; 2019-10-26)
DX: I44.2 Atrioventricular block, complete (principal); G92 Toxic encephalopathy; G93.1 Anoxic brain damage, not elsewhere classified; I10 Essential (primary) hypertension; J32.0 Chronic maxillary sinusitis; R55 Syncope and collapse; J32.3 Chronic sphenoidal sinusitis; E66.3 Overweight; E78.5 Hyperlipidemia, unspecified; F17.200 Nicotine dependence, unspecified, uncomplicated; I95.9 Hypotension, unspecified; E53.8 Deficiency of other specified B group vitamins; R00.1 Bradycardia, unspecified; I25.10 Atherosclerotic heart disease of native coronary artery without angina pectoris; E87.6 Hypokalemia; F03.90 Unspecified dementia, unspecified severity, without behavioral disturbance, psychotic disturbance, mood disturbance, and anxiety; J44.9 Chronic obstructive pulmonary disease, unspecified; Z79.82 Long term (current) use of aspirin; Z79.899 Other long term (current) drug therapy; Z80.6 Family history of leukemia; Z83.3 Family history of diabetes mellitus; Z68.28 Body mass index [BMI] 28.0-28.9, adult
CPT/HCPCS: 33208; 36415; 70450; 71045; 72125; 78452; 80048; 80053; 80061; 81001; 82607; 82746; 83036; 83735; 83880; 84443; 84484; 85025; 85610; 85730; 86850; 86900; 86901; 87081; 93005; 93017; 93306; 93458; 96365; 96375; 96376; 97110; 97116; 97163; 97530; 99152; 99153; A4565; C1785; G0378; J0153; J0461; J2250; J7060

== ENCOUNTER 2022-01-28 14:24 | Inpatient (IN) | payer BC, OTHER ==
[~2022-01-28] VITALS: Ht 177.8 cm; Wt 86.6 kg
[~2022-01-28 14:24] MED LIST changes: +DONE1TAB88 PO
[2022-01-28] MEDS ORDERED: SODIUM CHLORIDE 0.9% 1,000 ML IV ONE (14:45)
[2022-01-28 15:42] LABS: Basophils # (auto) 0 10 ^3/uL (0-0.2); Basophils % (auto) 0.3 % (0.0-2.0); Eosinophils # (auto) 0 10 ^3/uL (0-0.8); Eosinophils % (auto) 0.3 % (0.0-7.0); Hematocrit 46.3 % (41.0-53.0); Hemoglobin 15.1 g/dL (13.5-17.5); Lymphocytes # (auto) 0.2 10 ^3/uL (0.4-5.4); Lymphocytes % (auto) 2.4 % (10.0-50.0); Mean Corpuscular Hemoglobin 28.8 pg (28.0-32.0); Mean Corpuscular Hgb Conc. 32.8 g/dL (32.0-36.0); Mean Corpuscular Volume 87.9 fL (80.0-100.0); Monocytes # (auto) 0.6 10 ^3/uL (0-1.3); Monocytes % (auto) 6.3 % (0.0-12.0); Neutrophils # (auto) 8.2 10 ^3/uL (1.6-8.6); Neutrophils % (auto) 90.7 % (37.0-80.0); Nucleated Red Blood Cells % 0.2 %; Red Blood Cells 5.26 10^6/uL (4.5-5.90); Red Cell Distribution Width 13.8 % (11.8-14.3); White Blood Cell 9.1 10^3/uL (4.4-10.8)
[2022-01-28 16:07] LABS: Albumin 3.6 g/dL (3.4-5.0); Calcium 8.6 mg/dL (8.5-10.1); Potassium 4.2 mmol/L (3.5-5.1)
[2022-01-28 16:11] LABS: BUN/Creatinine Ratio 12.3; Bilirubin, Total 1.8 mg/dL (0.2-1.0); Total Protein 6.8 g/dL (6.4-8.2)
[2022-01-28 16:30] LABS: INR 1.03 (0.9-1.15); Partial Thromboplastin Time 28.4 sec (24.6-33.4)
[2022-01-28] MEDS ORDERED: DOCUSATE SOD 100 MG CAP PO PRN (19:30)
[2022-01-28] MEDS ORDERED: HYDROcodone-ACET 5/325MG TAB PO PRN (19:30)
[2022-01-28] MEDS ORDERED: MORPHINE SULFATE INJ 2 MG/ml SYRG IV PRN (19:30)
[2022-01-28] MEDS ORDERED: ACETAMINOPHEN 325 MG TAB PO PRN (19:30)
[2022-01-28] MEDS ORDERED: ONDANSETRON HCL 4 MG/2 ML VIAL IV PRN (19:30)
[2022-01-28] MEDS ORDERED: levoFLOXacin 500MG 100 ML IV ONE (19:33)
[2022-01-28 19:38] LABS: Urine Amorphous Crystal FEW /hpf (None Seen); Urine Bacteria FEW /hpf (None Seen); Urine Blood 3+ /uL (Negative); Urine Hyaline Cast FEW /lpf (0 - 2); Urine Mucus FEW (None Seen); Urine WBC 4 /hpf (0 - 3)
[2022-01-28] MEDS: SODIUM CHLORIDE 0.9% 1,000 ML IV SCH (21:16)
[2022-01-29 04:53] LABS: Basophils # (auto) 0 10 ^3/uL (0-0.2); Basophils % (auto) 0.3 % (0.0-2.0); Eosinophils # (auto) 0 10 ^3/uL (0-0.8); Eosinophils % (auto) 0.2 % (0.0-7.0); Hematocrit 46.2 % (41.0-53.0); Hemoglobin 15.4 g/dL (13.5-17.5); Lymphocytes # (auto) 0.6 10 ^3/uL (0.4-5.4); Lymphocytes % (auto) 9.1 % (10.0-50.0); Mean Corpuscular Hemoglobin 29.3 pg (28.0-32.0); Mean Corpuscular Hgb Conc. 33.3 g/dL (32.0-36.0); Monocytes # (auto) 0.6 10 ^3/uL (0-1.3); Neutrophils # (auto) 5.4 10 ^3/uL (1.6-8.6); Neutrophils % (auto) 81.4 % (37.0-80.0); Nucleated Red Blood Cells % 0.2 %; Red Blood Cells 5.25 10^6/uL (4.5-5.90); Red Cell Distribution Width 14.2 % (11.8-14.3); White Blood Cell 6.6 10^3/uL (4.4-10.8)
[2022-01-29 05:09] LABS: Albumin 3.4 g/dL (3.4-5.0); Calcium 8.6 mg/dL (8.5-10.1); Potassium 4.1 mmol/L (3.5-5.1)
[2022-01-29 05:11] LABS: BUN/Creatinine Ratio 14.7
[2022-01-29 05:22] LABS: Bilirubin, Total 1.9 mg/dL (0.2-1.0); Total Protein 6.6 g/dL (6.4-8.2)
[2022-01-29] MEDS: SODIUM CHLORIDE 0.9% 1,000 ML IV SCH (05:56)
[2022-01-29 09:09] VITALS: BP 119/59
[2022-01-29] MEDS ORDERED: AZITHROMYCIN 500MG/ 250ML 250 ML IV SCH (10:00)
[2022-01-29] MEDS: ENOXAPARIN SOD 40 MG/0.4 ML SYRINGE SC SCH (10:03)
[2022-01-29 12:02] LABS: Albumin 3.3 g/dL (3.4-5.0); Calcium 8.5 mg/dL (8.5-10.1); Potassium 4.2 mmol/L (3.5-5.1)
[2022-01-29 12:08] LABS: Bilirubin, Total 1.9 mg/dL (0.2-1.0); Total Protein 6.6 g/dL (6.4-8.2)
[2022-01-29] MEDS: ALBUTEROL SULF HFA 90MCG INH 200DOSE IN SCH ×2 (14:00→21:59)
[2022-01-29] MEDS ORDERED: TAMS0.4C36 PO (15:57)
[2022-01-29] MEDS ORDERED: levoFLOXacin 250MG 50 ML IV SCH (18:00)
[2022-01-29 22:00] VITALS: BP 145/71
[2022-01-30 05:09] VITALS: BP 130/63
[2022-01-30 06:39] LABS: Basophils # (auto) 0 10 ^3/uL (0-0.2); Basophils % (auto) 0.2 % (0.0-2.0); Eosinophils # (auto) 0 10 ^3/uL (0-0.8); Hematocrit 46.6 % (41.0-53.0); Hemoglobin 15.8 g/dL (13.5-17.5); Lymphocytes # (auto) 0.7 10 ^3/uL (0.4-5.4); Lymphocytes % (auto) 12.4 % (10.0-50.0); Mean Corpuscular Hemoglobin 29.4 pg (28.0-32.0); Mean Corpuscular Hgb Conc. 33.8 g/dL (32.0-36.0); Mean Corpuscular Volume 86.8 fL (80.0-100.0); Monocytes # (auto) 0.7 10 ^3/uL (0-1.3); Monocytes % (auto) 11.5 % (0.0-12.0); Neutrophils # (auto) 4.3 10 ^3/uL (1.6-8.6); Neutrophils % (auto) 75.9 % (37.0-80.0); Nucleated Red Blood Cells % 0.5 %; Red Blood Cells 5.37 10^6/uL (4.5-5.90); White Blood Cell 5.7 10^3/uL (4.4-10.8)
[2022-01-30] MEDS: ALBUTEROL SULF HFA 90MCG INH 200DOSE IN SCH ×2 (06:44→13:08)
[2022-01-30 06:58] LABS: Albumin 3.1 g/dL (3.4-5.0); Calcium 8.4 mg/dL (8.5-10.1)
[2022-01-30 07:02] LABS: BUN/Creatinine Ratio 22.1; Bilirubin, Total 1.9 mg/dL (0.2-1.0); Total Protein 6.4 g/dL (6.4-8.2)
[2022-01-30 08:00] VITALS: BP 138/69
[2022-01-30] MEDS: ENOXAPARIN SOD 40 MG/0.4 ML SYRINGE SC SCH (10:00)
[2022-01-30] MEDS ORDERED: AZITTAB PO (11:03)
[2022-01-30] MEDS ORDERED: ALBUAER3 IN (11:03)
[2022-01-30 13:00] VITALS: BP 118/70
[2022-01-30 16:33] VITALS: BP 112/64
== END 2022-01-30 17:44 | disposition home health service (06) | DRG 871 ==
LOC: ER 14:24 → EDBD 14:24 → OVERFLOW 19:23 → CENTRAL 01-29 13:00
PROVIDERS: ADMIT Internal Medicine; ATTEND Internal Medicine
DX: A41.9 Sepsis, unspecified organism (principal); G93.41 Metabolic encephalopathy; N17.0 Acute kidney failure with tubular necrosis; U07.1 COVID-19; F03.90 Unspecified dementia, unspecified severity, without behavioral disturbance, psychotic disturbance, mood disturbance, and anxiety; J44.9 Chronic obstructive pulmonary disease, unspecified; R31.9 Hematuria, unspecified; R79.89 Other specified abnormal findings of blood chemistry; K05.6 Periodontal disease, unspecified; R32 Unspecified urinary incontinence; Z79.51 Long term (current) use of inhaled steroids; Z83.3 Family history of diabetes mellitus
CPT/HCPCS: 36415; 70450; 71045; 74176; 76705; 80053; 81001; 83880; 84484; 85025; 85610; 85730; 87040; 93005; 94640; 96361; 96365; G0378; J1956

== ENCOUNTER 2022-02-19 12:29 | Inpatient (IN) | payer OTHER ==
[~2022-02-19] VITALS: Ht 188 cm; Wt 86.0 kg
[~2022-02-19 12:29] MED LIST changes: +ALBUAER3 IN; +AZITTAB PO; +TAMS0.4C36 PO
[2022-02-19 13:56] LABS: Basophils # (auto) 0.1 10 ^3/uL (0-0.2); Basophils % (auto) 1.7 % (0.0-2.0); Eosinophils # (auto) 0.1 10 ^3/uL (0-0.8); Eosinophils % (auto) 1.8 % (0.0-7.0); Hemoglobin 14.7 g/dL (13.5-17.5); Lymphocytes # (auto) 1.7 10 ^3/uL (0.4-5.4); Lymphocytes % (auto) 25.3 % (10.0-50.0); Mean Corpuscular Hemoglobin 28.7 pg (28.0-32.0); Mean Corpuscular Hgb Conc. 32.6 g/dL (32.0-36.0); Mean Corpuscular Volume 87.9 fL (80.0-100.0); Monocytes # (auto) 0.5 10 ^3/uL (0-1.3); Monocytes % (auto) 7.2 % (0.0-12.0); Neutrophils # (auto) 4.3 10 ^3/uL (1.6-8.6); Nucleated Red Blood Cells % 0.2 %; Red Blood Cells 5.12 10^6/uL (4.5-5.90); Red Cell Distribution Width 14.4 % (11.8-14.3); White Blood Cell 6.8 10^3/uL (4.4-10.8)
[2022-02-19 14:20] LABS: Albumin 3.8 g/dL (3.4-5.0); Calcium 9.2 mg/dL (8.5-10.1); Magnesium 3.1 mg/dL (1.6-2.6); Potassium 5.2 mmol/L (3.5-5.1)
[2022-02-19 14:22] LABS: Lactic Acid w/Reflex 2.4 mmol/L (0.4-2.0)
[2022-02-19 14:23] LABS: BUN/Creatinine Ratio 10.5; Bilirubin, Total 1.8 mg/dL (0.2-1.0); Total Protein 7.2 g/dL (6.4-8.2)
[2022-02-19] MEDS ORDERED: SODIUM CHLORIDE 0.9% 1,000 ML IV ONE (14:30)
[2022-02-19] MEDS ORDERED: SODIUM CHLORIDE 0.9% 500 ML IV ONE (14:30)
[2022-02-19 15:42] LABS: Urine Bacteria NONE SEEN /hpf (None Seen); Urine Blood Negative /uL (Negative); Urine Hyaline Cast FEW /lpf (0 - 2); Urine Specific Gravity 1.014 (1.001-1.035); Urine WBC 2 /hpf (0 - 3)
[2022-02-19 15:53] LABS: Alcohol, Urine < 3.0 mg/dL (0-10); Amphetamine Screen, Urine NEGATIVE (NEGATIVE); Barbiturate Scree,Urine NEGATIVE (NEGATIVE); Benzodiazephine Screen, Urine NEGATIVE (NEGATIVE); Cannabinoid Screen, Urine NEGATIVE (NEGATIVE); Cocaine Screen, Urine NEGATIVE (NEGATIVE); Opiate Scree,Urine NEGATIVE (NEGATIVE); Phencyclidine Screen, Urine NEGATIVE (NEGATIVE)
[2022-02-19] MEDS ORDERED: cefTRIAXone 1GM/50ML D5W 50 ML IV ONE (16:15)
[2022-02-19] MEDS ORDERED: ONDANSETRON HCL 4 MG/2 ML VIAL IV PRN (16:45)
[2022-02-19] MEDS ORDERED: MORPHINE SULFATE INJ 2 MG/ml SYRG IV PRN (16:45)
[2022-02-19] MEDS ORDERED: HYDROcodone-ACET 5/325MG TAB PO PRN (16:45)
[2022-02-19] MEDS ORDERED: ACETAMINOPHEN 325 MG TAB PO PRN (16:45)
[2022-02-19] MEDS ORDERED: DOCUSATE SOD 100 MG CAP PO PRN (16:45)
[2022-02-19] MEDS: SODIUM CHLORIDE 0.9% 1,000 ML IV SCH (17:30)
[2022-02-20 05:31] LABS: Potassium 4.6 mmol/L (3.5-5.1)
[2022-02-20 05:38] LABS: Albumin 3.4 g/dL (3.4-5.0); BUN/Creatinine Ratio 10.2; Calcium 8.6 mg/dL (8.5-10.1)
[2022-02-20 05:52] LABS: Bilirubin, Total 1.9 mg/dL (0.2-1.0); Total Protein 6.5 g/dL (6.4-8.2)
[2022-02-20 05:57] LABS: Basophils # (auto) 0 10 ^3/uL (0-0.2); Basophils % (auto) 0.8 % (0.0-2.0); Eosinophils # (auto) 0.1 10 ^3/uL (0-0.8); Eosinophils % (auto) 1.5 % (0.0-7.0); Hematocrit 40.8 % (41.0-53.0); Hemoglobin 13.8 g/dL (13.5-17.5); Lymphocytes # (auto) 0.9 10 ^3/uL (0.4-5.4); Lymphocytes % (auto) 15.4 % (10.0-50.0); Mean Corpuscular Hemoglobin 29.4 pg (28.0-32.0); Mean Corpuscular Hgb Conc. 33.9 g/dL (32.0-36.0); Mean Corpuscular Volume 86.7 fL (80.0-100.0); Monocytes # (auto) 0.4 10 ^3/uL (0-1.3); Monocytes % (auto) 7.7 % (0.0-12.0); Neutrophils # (auto) 4.3 10 ^3/uL (1.6-8.6); Neutrophils % (auto) 74.6 % (37.0-80.0); Nucleated Red Blood Cells % 0.1 %; Red Cell Distribution Width 14.2 % (11.8-14.3); White Blood Cell 5.7 10^3/uL (4.4-10.8)
[2022-02-20] MEDS ORDERED: LORazepam 2MG/ML-1ML VIAL IV PRN ×2 (10:00)
[2022-02-20] MEDS: SODIUM CHLORIDE 0.9% 1,000 ML IV SCH ×2 (10:30→16:33)
[2022-02-20] MEDS: levETIRAcetam 500 MG TAB PO SCH ×2 (10:30→21:39)
[2022-02-20] MEDS: ENOXAPARIN SOD 30 MG/0.3 ML SYRINGE SC SCH (10:30)
[2022-02-20] MEDS: DONEPEZIL HYDROCHLORIDE 5 MG TAB PO SCH (10:31)
[2022-02-20] MEDS: TAMSULOSIN HYDROCHLORIDE 0.4 MG CAP PO SCH (10:31)
[2022-02-20 16:45] VITALS: BP 127/80
[2022-02-20 22:00] VITALS: BP 112/58
[2022-02-21 05:00] VITALS: BP 117/53
[2022-02-21 05:03] LABS: Basophils # (auto) 0.1 10 ^3/uL (0-0.2); Basophils % (auto) 1.4 % (0.0-2.0); Eosinophils # (auto) 0.1 10 ^3/uL (0-0.8); Eosinophils % (auto) 2.3 % (0.0-7.0); Hematocrit 41.8 % (41.0-53.0); Lymphocytes # (auto) 1.4 10 ^3/uL (0.4-5.4); Lymphocytes % (auto) 26.2 % (10.0-50.0); Mean Corpuscular Hemoglobin 29.3 pg (28.0-32.0); Mean Corpuscular Hgb Conc. 33.5 g/dL (32.0-36.0); Mean Corpuscular Volume 87.6 fL (80.0-100.0); Monocytes # (auto) 0.5 10 ^3/uL (0-1.3); Neutrophils # (auto) 3.3 10 ^3/uL (1.6-8.6); Neutrophils % (auto) 61.1 % (37.0-80.0); Nucleated Red Blood Cells % 0.1 %; Red Blood Cells 4.78 10^6/uL (4.5-5.90); Red Cell Distribution Width 14.3 % (11.8-14.3); White Blood Cell 5.3 10^3/uL (4.4-10.8)
[2022-02-21 05:25] LABS: BUN/Creatinine Ratio 14.8; Calcium 8.4 mg/dL (8.5-10.1); Potassium 4.5 mmol/L (3.5-5.1)
[2022-02-21] MEDS: SODIUM CHLORIDE 0.9% 1,000 ML IV SCH (05:33)
[2022-02-21 09:00] VITALS: BP 118/56
[2022-02-21] MEDS: DONEPEZIL HYDROCHLORIDE 5 MG TAB PO SCH (09:12)
[2022-02-21] MEDS: TAMSULOSIN HYDROCHLORIDE 0.4 MG CAP PO SCH (09:13)
[2022-02-21] MEDS: ENOXAPARIN SOD 30 MG/0.3 ML SYRINGE SC SCH (09:14)
[2022-02-21] MEDS: levETIRAcetam 500 MG TAB PO SCH (09:19)
[2022-02-21 13:00] VITALS: BP 125/65
[2022-02-21] MEDS ORDERED: KEP500T PO (13:08)
[2022-02-21 13:32] VITALS: BP 125/65
== END 2022-02-21 14:47 | disposition home or self-care (01) | DRG 100 ==
LOC: EDBD 12:29 → ER 12:29 → TELE 16:48 → TELE-WESTW 02-20 14:15
PROVIDERS: ADMIT Internal Medicine; ATTEND Internal Medicine
DX: G40.909 Epilepsy, unspecified, not intractable, without status epilepticus (principal); N17.0 Acute kidney failure with tubular necrosis; E87.2 Acidosis; N39.0 Urinary tract infection, site not specified; C67.4 Malignant neoplasm of posterior wall of bladder; E83.41 Hypermagnesemia; E87.5 Hyperkalemia; F03.90 Unspecified dementia, unspecified severity, without behavioral disturbance, psychotic disturbance, mood disturbance, and anxiety; I25.9 Chronic ischemic heart disease, unspecified; F17.200 Nicotine dependence, unspecified, uncomplicated; R74.01 Elevation of levels of liver transaminase levels; R74.8 Abnormal levels of other serum enzymes; Z20.822 Contact with and (suspected) exposure to COVID-19; I50.9 Heart failure, unspecified; J44.9 Chronic obstructive pulmonary disease, unspecified; Z79.51 Long term (current) use of inhaled steroids; Z85.51 Personal history of malignant neoplasm of bladder; Z79.82 Long term (current) use of aspirin; Z79.899 Other long term (current) drug therapy; Z80.6 Family history of leukemia; Z83.3 Family history of diabetes mellitus; Z86.73 Personal history of transient ischemic attack (TIA), and cerebral infarction without residual deficits; Z88.0 Allergy status to penicillin
CPT/HCPCS: 36415; 70450; 70551; 71045; 80048; 80053; 80307; 80320; 81001; 83605; 83735; 84443; 84484; 85025; 87040; 93005; 95819; 96361; 96365; 97163; G0378; J0696

== ENCOUNTER → 2022-03-04 | Outpatient (CLI) | payer OTHER ==
[~2022-03-04] MED LIST changes: +KEP500T PO
[2022-03-04 09:36] LABS: Basophils # (auto) 0.1 10 ^3/uL (0-0.2); Basophils % (auto) 1.2 % (0.0-2.0); Eosinophils # (auto) 0.4 10 ^3/uL (0-0.8); Eosinophils % (auto) 5.5 % (0.0-7.0); Hematocrit 41.7 % (41.0-53.0); Hemoglobin 13.9 g/dL (13.5-17.5); Lymphocytes # (auto) 1.8 10 ^3/uL (0.4-5.4); Lymphocytes % (auto) 26.6 % (10.0-50.0); Mean Corpuscular Hemoglobin 29.4 pg (28.0-32.0); Mean Corpuscular Hgb Conc. 33.3 g/dL (32.0-36.0); Mean Corpuscular Volume 88.2 fL (80.0-100.0); Monocytes # (auto) 0.5 10 ^3/uL (0-1.3); Monocytes % (auto) 6.9 % (0.0-12.0); Neutrophils # (auto) 4.1 10 ^3/uL (1.6-8.6); Neutrophils % (auto) 59.8 % (37.0-80.0); Nucleated Red Blood Cells % 0.1 %; Red Blood Cells 4.72 10^6/uL (4.5-5.90); Red Cell Distribution Width 15.1 % (11.8-14.3); White Blood Cell 6.9 10^3/uL (4.4-10.8)
[2022-03-04 10:10] LABS: Albumin 3.6 g/dL (3.4-5.0); Calcium 8.9 mg/dL (8.5-10.1); Potassium 5.1 mmol/L (3.5-5.1)
[2022-03-04 10:24] LABS: BUN/Creatinine Ratio 12.9; Bilirubin, Total 1.2 mg/dL (0.2-1.0); Total Protein 6.7 g/dL (6.4-8.2)
== END | disposition home or self-care (01) ==
LOC: LAB 09:13
PROVIDERS: ATTEND Internal Medicine
DX: N17.9 Acute kidney failure, unspecified (principal)
CPT/HCPCS: 36415; 80053; 85025

== ENCOUNTER → 2022-03-07 | Outpatient (CLI) | payer OTHER ==
[2022-03-07 07:50] LABS: Urine Bacteria NONE SEEN /hpf (None Seen); Urine Blood Negative /uL (Negative); Urine Hyaline Cast FEW /lpf (0 - 2); Urine Mucus FEW (None Seen); Urine Specific Gravity 1.016 (1.001-1.035); Urine WBC 15 /hpf (0 - 3)
== END | disposition home or self-care (01) ==
LOC: LAB 07:06
PROVIDERS: ATTEND Urology
DX: C67.9 Malignant neoplasm of bladder, unspecified (principal); Z79.899 Other long term (current) drug therapy
CPT/HCPCS: 81001; 87086

== ENCOUNTER → 2022-04-14 | Outpatient (CLI) | payer OTHER ==
[2022-04-14 10:49] LABS: Urine Bacteria FEW /hpf (None Seen); Urine Blood Negative /uL (Negative); Urine Budding Yeast FEW /hpf (None Seen); Urine Hyaline Cast FEW /lpf (0 - 2); Urine Mucus FEW (None Seen); Urine Specific Gravity 1.014 (1.001-1.035); Urine WBC 33 /hpf (0 - 3)
== END | disposition home or self-care (01) ==
LOC: LAB 10:16
PROVIDERS: ATTEND Urology
DX: N39.0 Urinary tract infection, site not specified (principal)
CPT/HCPCS: 81001; 87086

== ENCOUNTER → 2022-04-17 | Outpatient (CLI) | payer OTHER | END | disposition home or self-care (01) | LOC: XYW 10:22 | PROVIDERS: ATTEND Internal Medicine | DX: Z01.810 Encounter for preprocedural cardiovascular examination (principal); I08.2 Rheumatic disorders of both aortic and tricuspid valves | CPT/HCPCS: 93306 ==

== ENCOUNTER → 2022-04-24 | Outpatient (CLI) | payer OTHER | END | disposition home or self-care (01) | LOC: XYW 10:39 | PROVIDERS: ATTEND Internal Medicine | DX: R55 Syncope and collapse (principal) | CPT/HCPCS: 93886 ==

== ENCOUNTER 2022-05-11 18:54 | Emergency (ER) | payer OTHER ==
[~2022-05-11] VITALS: Ht 167.6 cm; Wt 77.3 kg
[2022-05-11 20:30] VITALS: BP 146/74
== END 2022-05-11 21:31 | disposition home or self-care (01) ==
LOC: EDBD 18:54 → EDUNIT# 18:54 → ER 19:01
DX: M25.551 Pain in right hip (principal); J44.9 Chronic obstructive pulmonary disease, unspecified; I50.9 Heart failure, unspecified; J45.909 Unspecified asthma, uncomplicated; Z88.0 Allergy status to penicillin
CPT/HCPCS: 73502; 93005

== ENCOUNTER 2022-05-16 13:47 | Inpatient (IN) | payer OTHER ==
[~2022-05-16] VITALS: Ht 162.6 cm; Wt 82.6 kg
[2022-05-16] MEDS ORDERED: HYDROcodone-ACET 5/325MG TAB PO PRN (20:30)
[2022-05-16] MEDS ORDERED: PANTOPRAZOLE 40 MG/10 ML VIAL INJ IV ONE (20:45)
[2022-05-16 20:51] LABS: Basophils # (auto) 0 10 ^3/uL (0-0.2); Basophils % (auto) 0.5 % (0.0-2.0); Eosinophils # (auto) 0.2 10 ^3/uL (0-0.8); Hematocrit 43.7 % (41.0-53.0); Hemoglobin 14.3 g/dL (13.5-17.5); Lymphocytes # (auto) 1.5 10 ^3/uL (0.4-5.4); Lymphocytes % (auto) 19.4 % (10.0-50.0); Mean Corpuscular Hemoglobin 29.7 pg (28.0-32.0); Mean Corpuscular Hgb Conc. 32.8 g/dL (32.0-36.0); Mean Corpuscular Volume 90.6 fL (80.0-100.0); Monocytes # (auto) 0.5 10 ^3/uL (0-1.3); Monocytes % (auto) 6.2 % (0.0-12.0); Neutrophils # (auto) 5.4 10 ^3/uL (1.6-8.6); Neutrophils % (auto) 70.9 % (37.0-80.0); Nucleated Red Blood Cells % 0.1 %; Red Blood Cells 4.83 10^6/uL (4.5-5.90); Red Cell Distribution Width 13.8 % (11.8-14.3); White Blood Cell 7.6 10^3/uL (4.4-10.8)
[2022-05-16 21:04] LABS: INR 0.99 (0.9-1.15)
[2022-05-16 21:08] LABS: Alanine Aminotransferase 28 U/L (16-61); Albumin 3.4 g/dL (3.4-5.0); Anion Gap 6 (5-15); Aspartate Aminotransferase 17 U/L (15-37); BUN/Creatinine Ratio 15.6; Blood Urea Nitrogen 14 mg/dL (7-18); Carbon Dioxide 23 mmol/L (21-32); Chloride 111 mmol/L (98-107); GFR African American 103 mL/min; GFR Non-African American 85 mL/min; Glucose 100 mg/dL (74-106); Sodium 140 mmol/L (136-145)
[2022-05-16 21:10] LABS: Alkaline Phosphatase 81 U/L (45-117); Bilirubin, Total 1.1 mg/dL (0.2-1.0); Total Protein 7.1 g/dL (6.4-8.2)
[2022-05-17] MEDS: ASCORBIC ACID 500 MG TAB PO SCH ×3 (00:34→21:28)
[2022-05-17] MEDS: SODIUM CHLORIDE 0.9% 1,000 ML IV SCH ×2 (00:42→13:10)
[2022-05-17 05:00] VITALS: BP 145/55
[2022-05-17 06:01] LABS: Urine Amorphous Crystal FEW /hpf (None Seen); Urine Bacteria FEW /hpf (None Seen); Urine Blood 3+ /uL (Negative); Urine Mucus FEW (None Seen); Urine Specific Gravity 1.016 (1.001-1.035); Urine WBC 66 /hpf (0 - 3)
[2022-05-17 08:00] VITALS: BP 144/72
[2022-05-17 08:04] LABS: INR 1.03 (0.9-1.15)
[2022-05-17] MEDS: PANTOPRAZOLE 40 MG/10 ML VIAL INJ IV SCH (08:09)
[2022-05-17 09:13] VITALS: BP 144/72
[2022-05-17] MEDS: ENOXAPARIN SOD 40 MG/0.4 ML SYRINGE SC SCH (10:00)
[2022-05-17] MEDS ORDERED: BUPIVACAINE W/ EPINEPH 0.25% INJ 50ML MDV ONE ×2 (10:10→10:14)
[2022-05-17] MEDS ORDERED: MIDAZOLAM HCL 2MG/2ML 2ml VIAL (1mg/ml) ONE (10:10)
[2022-05-17] MEDS ORDERED: GLYCOPYRROLATE 0.2 MG/ML 1ML VIAL ONE (10:11)
[2022-05-17] MEDS ORDERED: DexAMETHasone SOD PHOS 10MG/1ML VIAL INJ ONE (10:11)
[2022-05-17] MEDS ORDERED: ONDANSETRON HCL 4 MG/2 ML VIAL ONE (10:11)
[2022-05-17] MEDS ORDERED: KETOROLAC TROMETH 30 MG/ML 1ML VIAL ONE (10:11)
[2022-05-17] MEDS ORDERED: VANCOMYCIN HCL 1000 MG VL ONE (10:14)
[2022-05-17] MEDS ORDERED: KETAMINE 50mg/ML 10ml Vial (500mg/10ml) IV ONE (10:15)
[2022-05-17] MEDS ORDERED: ceFAZolin 1GM VL ONE (10:26)
[2022-05-17] MEDS ORDERED: SODIUM CHLORIDE LOCK 10 ML ONE ×3 (10:26→11:29)
[2022-05-17] MEDS ORDERED: ePHEDrine SULFATE 50 MG/ML AMP ONE (10:50)
[2022-05-17] MEDS ORDERED: PROPOFOL 10 MG/ML 20 ML IV ONE (11:00)
[2022-05-17] MEDS ORDERED: levoFLOXacin 500MG 100 ML IV ONE (13:00)
[2022-05-17] MEDS ORDERED: ceFAZolin 2 GM in D5W 5% 100 ML IV SCH (14:00)
[2022-05-17] MEDS: ZINC SULFATE 220mg CAP or TAB PO SCH (14:09)
[2022-05-17] MEDS: MULTIPLE VITAMIN TAB PO SCH (14:10)
[2022-05-17] MEDS ORDERED: MIRA50TA PO (14:30)
[2022-05-17] MEDS ORDERED: BACDST PO (14:30)
[2022-05-17 16:41] VITALS: BP 128/57
[2022-05-17] MEDS: DONEPEZIL HYDROCHLORIDE 5 MG TAB PO SCH (17:35)
[2022-05-17] MEDS: TAMSULOSIN HYDROCHLORIDE 0.4 MG CAP PO SCH (17:35)
[2022-05-17] MEDS: ceFAZolin 2 GM in D5W 5% 100 ML IV SCH ×2 (17:36→23:18)
[2022-05-17] MEDS: MYRBETRIC 50 MG PO SCH (21:27)
[2022-05-17] MEDS: ACETAMINOPHEN 325 MG TAB PO PRN (21:30)
[2022-05-17 22:00] VITALS: BP 149/62
[2022-05-18 05:00] VITALS: BP 152/89
[2022-05-18] MEDS: SODIUM CHLORIDE 0.9% 1,000 ML IV SCH (05:50)
[2022-05-18 08:00] VITALS: BP 144/72
[2022-05-18 09:00] VITALS: BP_SYST 119; BP_SYST 159; BP_DIAS 44; BP_DIAS 85
[2022-05-18] MEDS: levoFLOXacin 500MG 100 ML IV SCH (09:52)
[2022-05-18] MEDS ORDERED: ENOXAPARIN SOD 40 MG/0.4 ML SYRINGE SC SCH (10:00)
[2022-05-18] MEDS: ENOXAPARIN SOD 40 MG/0.4 ML SYRINGE SC SCH (11:13)
[2022-05-18] MEDS: PANTOPRAZOLE 40 MG/10 ML VIAL INJ IV SCH (11:14)
[2022-05-18] MEDS: TAMSULOSIN HYDROCHLORIDE 0.4 MG CAP PO SCH (11:19)
[2022-05-18] MEDS: MULTIPLE VITAMIN TAB PO SCH (11:19)
[2022-05-18] MEDS: ZINC SULFATE 220mg CAP or TAB PO SCH (11:20)
[2022-05-18] MEDS: ASCORBIC ACID 500 MG TAB PO SCH ×2 (11:20→21:23)
[2022-05-18] MEDS: DONEPEZIL HYDROCHLORIDE 5 MG TAB PO SCH (11:21)
[2022-05-18] MEDS: MYRBETRIC 50 MG PO SCH (12:16)
[2022-05-18 13:00] VITALS: BP 109/46
[2022-05-18 17:00] VITALS: BP 121/56
[2022-05-18 19:00] LABS: Basophils # (auto) 0 10 ^3/uL (0-0.2); Basophils % (auto) 0.3 % (0.0-2.0); Eosinophils # (auto) 0.1 10 ^3/uL (0-0.8); Eosinophils % (auto) 0.7 % (0.0-7.0); Hematocrit 41.2 % (41.0-53.0); Hemoglobin 13.8 g/dL (13.5-17.5); Lymphocytes # (auto) 1.6 10 ^3/uL (0.4-5.4); Lymphocytes % (auto) 13.1 % (10.0-50.0); Mean Corpuscular Hemoglobin 30.4 pg (28.0-32.0); Mean Corpuscular Hgb Conc. 33.4 g/dL (32.0-36.0); Mean Corpuscular Volume 90.9 fL (80.0-100.0); Monocytes # (auto) 0.7 10 ^3/uL (0-1.3); Monocytes % (auto) 5.9 % (0.0-12.0); Neutrophils # (auto) 9.6 10 ^3/uL (1.6-8.6); Nucleated Red Blood Cells % 0.1 %; Red Blood Cells 4.53 10^6/uL (4.5-5.90)
[2022-05-18 22:00] VITALS: BP 144/59
[2022-05-19 05:00] VITALS: BP 146/65
[2022-05-19] MEDS: SODIUM CHLORIDE 0.9% 1,000 ML IV SCH ×2 (06:02→15:10)
[2022-05-19 07:45] VITALS: BP 144/72
[2022-05-19 09:00] VITALS: BP 152/65
[2022-05-19] MEDS: levoFLOXacin 500MG 100 ML IV SCH (10:23)
[2022-05-19] MEDS: PANTOPRAZOLE 40 MG/10 ML VIAL INJ IV SCH (10:27)
[2022-05-19] MEDS: TAMSULOSIN HYDROCHLORIDE 0.4 MG CAP PO SCH (10:28)
[2022-05-19] MEDS: MULTIPLE VITAMIN TAB PO SCH (10:28)
[2022-05-19] MEDS: ZINC SULFATE 220mg CAP or TAB PO SCH (10:28)
[2022-05-19] MEDS: ASCORBIC ACID 500 MG TAB PO SCH ×2 (10:28→21:59)
[2022-05-19] MEDS: DONEPEZIL HYDROCHLORIDE 5 MG TAB PO SCH (10:29)
[2022-05-19] MEDS: MYRBETRIC 50 MG PO SCH (10:29)
[2022-05-19] MEDS: ENOXAPARIN SOD 40 MG/0.4 ML SYRINGE SC SCH (10:30)
[2022-05-19 12:26] LABS: Hepatitis C Antibody Negative (Negative)
[2022-05-19 13:00] VITALS: BP 99/71
[2022-05-19 17:00] VITALS: BP 100/70
[2022-05-20 05:33] VITALS: BP 131/71
[2022-05-20] MEDS: SODIUM CHLORIDE 0.9% 1,000 ML IV SCH (08:39)
[2022-05-20 09:00] VITALS: BP 128/62
[2022-05-20] MEDS: MYRBETRIC 50 MG PO SCH (10:00)
[2022-05-20] MEDS ORDERED: LEVO500T31 PO (11:23)
[2022-05-20] MEDS ORDERED: TRAM50TA2 PO (11:23)
[2022-05-20] MEDS ORDERED: LACTULOSE 20Gm/30ML SOLN PO ONE (11:30)
[2022-05-20] MEDS: TAMSULOSIN HYDROCHLORIDE 0.4 MG CAP PO SCH (11:32)
[2022-05-20] MEDS: DONEPEZIL HYDROCHLORIDE 5 MG TAB PO SCH (11:33)
[2022-05-20] MEDS: MULTIPLE VITAMIN TAB PO SCH (11:33)
[2022-05-20] MEDS: ZINC SULFATE 220mg CAP or TAB PO SCH (11:33)
[2022-05-20] MEDS: ASCORBIC ACID 500 MG TAB PO SCH (11:33)
[2022-05-20] MEDS: ENOXAPARIN SOD 40 MG/0.4 ML SYRINGE SC SCH (11:33)
[2022-05-20] MEDS: levoFLOXacin 500MG 100 ML IV SCH (11:34)
[2022-05-20 13:00] VITALS: BP 104/42
[2022-05-20] MEDS: ACETAMINOPHEN 325 MG TAB PO PRN (14:00)
[2022-05-20 16:33] VITALS: BP_SYST 42
== END 2022-05-20 17:54 | disposition home health service (06) | DRG 481 ==
LOC: ER 13:47 → OVERFLOW 20:30 → WEST WING 05-17 00:01
PROVIDERS: ADMIT Nurse Practitioner Family; ATTEND Family Medicine
PROC: 0QS604Z Reposition Right Upper Femur with Internal Fixation Device, Open Approach (ICD-10-PCS; principal; 2022-05-17 10:32)
DX: S72.001A Fracture of unspecified part of neck of right femur, initial encounter for closed fracture (principal); N39.0 Urinary tract infection, site not specified; I50.9 Heart failure, unspecified; E66.01 Morbid (severe) obesity due to excess calories; I25.10 Atherosclerotic heart disease of native coronary artery without angina pectoris; J44.9 Chronic obstructive pulmonary disease, unspecified; F03.90 Unspecified dementia, unspecified severity, without behavioral disturbance, psychotic disturbance, mood disturbance, and anxiety; Z20.822 Contact with and (suspected) exposure to COVID-19; W18.30XA Fall on same level, unspecified, initial encounter; Z68.31 Body mass index [BMI] 31.0-31.9, adult; Z88.0 Allergy status to penicillin; Z95.0 Presence of cardiac pacemaker; Y93.89 Activity, other specified; Y92.89 Other specified places as the place of occurrence of the external cause
CPT/HCPCS: 36415; 71045; 72170; 73502; 76000; 80053; 81001; 85025; 85610; 85730; 86803; 86850; 86900; 86901; 87040; 87086; 87340; 87426; 93005; 93971; 96365; 96367; 96375; A4565; C9113; G0378; J0690; J1100; J1885; J1956; J2250; J2405; J2704; J7060

== ENCOUNTER 2022-06-03 15:28 | Emergency (ER) | payer OTHER ==
[~2022-06-03] VITALS: Ht 170.2 cm; Wt 180.0 kg
[~2022-06-03 15:28] MED LIST changes: -ALBUAER3 IN; -AZITTAB PO; -FLUT250M2 INH; -KEP500T PO; +LEVO500T31 PO; +MIRA50TA PO; +TRAM50TA2 PO
[2022-06-03 17:36] LABS: Basophils # (auto) 0.1 10 ^3/uL (0-0.2); Basophils % (auto) 1.1 % (0.0-2.0); Eosinophils # (auto) 0.3 10 ^3/uL (0-0.8); Eosinophils % (auto) 3.3 % (0.0-7.0); Hematocrit 42.6 % (41.0-53.0); Hemoglobin 14.1 g/dL (13.5-17.5); Lymphocytes # (auto) 1.8 10 ^3/uL (0.4-5.4); Lymphocytes % (auto) 19.4 % (10.0-50.0); Mean Corpuscular Hemoglobin 30.1 pg (28.0-32.0); Mean Corpuscular Hgb Conc. 33.1 g/dL (32.0-36.0); Monocytes # (auto) 0.5 10 ^3/uL (0-1.3); Monocytes % (auto) 5.7 % (0.0-12.0); Neutrophils # (auto) 6.5 10 ^3/uL (1.6-8.6); Neutrophils % (auto) 70.5 % (37.0-80.0); Nucleated Red Blood Cells % 0.2 %; Red Blood Cells 4.68 10^6/uL (4.5-5.90); Red Cell Distribution Width 13.2 % (11.8-14.3); White Blood Cell 9.2 10^3/uL (4.4-10.8)
[2022-06-03 17:48] LABS: Albumin 3.5 g/dL (3.4-5.0); Calcium 8.8 mg/dL (8.5-10.1); Potassium 4.6 mmol/L (3.5-5.1)
[2022-06-03 17:50] LABS: Bilirubin, Total 0.9 mg/dL (0.2-1.0); Total Protein 6.8 g/dL (6.4-8.2)
[2022-06-03] MEDS ORDERED: ENOXAPARIN SOD 100 MG/1 ML SYRINGE SC ONE (18:30)
[2022-06-03] MEDS ORDERED: IOHEXOL 350 MG/ML 100ML IJ ONE (18:38)
[2022-06-03] MEDS ORDERED: cefTRIAXone SOD 1,000 MG VL IM ONE (18:45)
[2022-06-03] MEDS ORDERED: LIDOCAINE 1% HCL (LOCAL ANESTH.) INJ 20ML MDV ONE (19:30)
[2022-06-03 19:40] LABS: Urine Specific Gravity 1.011 (1.001-1.035)
[2022-06-03 19:41] LABS: Urine Blood 3+ /uL (Negative)
[2022-06-03 20:32] VITALS: BP 114/62
== END 2022-06-03 20:33 | disposition home or self-care (01) ==
LOC: ER 15:28
DX: S72.001G Fracture of unspecified part of neck of right femur, subsequent encounter for closed fracture with delayed healing (principal); R33.9 Retention of urine, unspecified; J44.9 Chronic obstructive pulmonary disease, unspecified; I50.9 Heart failure, unspecified; Z79.899 Other long term (current) drug therapy; Z88.0 Allergy status to penicillin; W19.XXXD Unspecified fall, subsequent encounter
CPT/HCPCS: 36415; 80053; 81003; 84484; 85025; 85379; 96372; 99284; J0696; J1650; J2001; Q9967

== ENCOUNTER 2022-06-19 09:46 | Day surgery (SDC) | payer OTHER ==
[2022-06-17 12:30] LABS: Basophils # (auto) 0.1 10 ^3/uL (0-0.2); Basophils % (auto) 1.1 % (0.0-2.0); Eosinophils # (auto) 0.3 10 ^3/uL (0-0.8); Hematocrit 42.4 % (41.0-53.0); Hemoglobin 14.2 g/dL (13.5-17.5); Lymphocytes # (auto) 1.6 10 ^3/uL (0.4-5.4); Lymphocytes % (auto) 21.4 % (10.0-50.0); Mean Corpuscular Hemoglobin 29.9 pg (28.0-32.0); Mean Corpuscular Hgb Conc. 33.5 g/dL (32.0-36.0); Mean Corpuscular Volume 89.3 fL (80.0-100.0); Monocytes # (auto) 0.4 10 ^3/uL (0-1.3); Monocytes % (auto) 5.8 % (0.0-12.0); Neutrophils # (auto) 5.1 10 ^3/uL (1.6-8.6); Neutrophils % (auto) 67.7 % (37.0-80.0); Nucleated Red Blood Cells % 0.3 %; Red Blood Cells 4.75 10^6/uL (4.5-5.90); Red Cell Distribution Width 13.6 % (11.8-14.3); White Blood Cell 7.5 10^3/uL (4.4-10.8)
[2022-06-17 12:52] LABS: INR 0.97 (0.9-1.15); Partial Thromboplastin Time 28.8 sec (24.6-33.4)
[2022-06-17 12:58] LABS: Urine Bacteria NONE SEEN /hpf (None Seen); Urine Blood 3+ /uL (Negative); Urine Mucus FEW (None Seen); Urine Specific Gravity 1.019 (1.001-1.035); Urine WBC 18 /hpf (0 - 3)
[2022-06-17 13:25] LABS: Albumin 3.7 g/dL (3.4-5.0); Calcium 8.9 mg/dL (8.5-10.1); Potassium 4.9 mmol/L (3.5-5.1)
[2022-06-17 13:29] LABS: BUN/Creatinine Ratio 13.4; Bilirubin, Total 0.9 mg/dL (0.2-1.0); Total Protein 7.1 g/dL (6.4-8.2)
[~2022-06-19] VITALS: Ht 154.9 cm; Wt 81.6 kg
[2022-06-19] MEDS ORDERED: fentaNYL CITRATE 100 MCG/2 ML VL ONE (12:23)
[2022-06-19] MEDS ORDERED: MIDAZOLAM HCL 2MG/2ML 2ml VIAL (1mg/ml) ONE (12:23)
[2022-06-19] MEDS ORDERED: PROPOFOL 10 MG/ML 20 ML IV ONE (12:36)
[2022-06-19] MEDS ORDERED: ONDANSETRON HCL 4 MG/2 ML VIAL ONE (13:20)
[2022-06-19] MEDS ORDERED: LIDOCAINE 2% (LOCAL ANESTH.) PF 5ml SDV ONE (13:20)
[2022-06-19] MEDS ORDERED: GLYCOPYRROLATE 0.2 MG/ML 1ML VIAL ONE (13:46)
[2022-06-19] MEDS ORDERED: NEOSTIGMINE 1 MG/ML INJ (10mg/10ML VIAL) ONE (13:46)
[2022-06-19 14:52] VITALS: BP 135/67
== END 2022-06-19 15:06 | disposition home or self-care (01) ==
LOC: SUR 09:46
PROVIDERS: ATTEND Urology
DX: N40.1 Benign prostatic hyperplasia with lower urinary tract symptoms (principal); R33.8 Other retention of urine; Z20.822 Contact with and (suspected) exposure to COVID-19
CPT/HCPCS: 36415; 52224; 52601; 80053; 81001; 85025; 85610; 85730; 87086; 88305; 88342; J2001; J2405; J2704; J3010; U0003; J2250

== ENCOUNTER → 2023-03-16 | Outpatient (CLI) | payer OTHER ==
[2023-03-16 12:04] LABS: Basophils # (auto) 0 10 ^3/uL (0-0.2); Basophils % (auto) 0.4 % (0.0-2.0); Eosinophils # (auto) 0.4 10 ^3/uL (0-0.8); Eosinophils % (auto) 4.3 % (0.0-7.0); Hematocrit 46.2 % (41.0-53.0); Hemoglobin 15.4 g/dL (13.5-17.5); Lymphocytes # (auto) 1.8 10 ^3/uL (0.4-5.4); Lymphocytes % (auto) 17.7 % (10.0-50.0); Mean Corpuscular Hemoglobin 29.9 pg (28.0-32.0); Mean Corpuscular Hgb Conc. 33.4 g/dL (32.0-36.0); Mean Corpuscular Volume 89.6 fL (80.0-100.0); Monocytes # (auto) 0.5 10 ^3/uL (0-1.3); Monocytes % (auto) 5.2 % (0.0-12.0); Neutrophils # (auto) 7.4 10 ^3/uL (1.6-8.6); Neutrophils % (auto) 72.4 % (37.0-80.0); Nucleated Red Blood Cells % 0.1 %; Red Blood Cells 5.15 10^6/uL (4.5-5.90); Red Cell Distribution Width 14.1 % (11.8-14.3); White Blood Cell 10.2 10^3/uL (4.4-10.8)
[2023-03-16 12:29] LABS: Alanine Aminotransferase 26 U/L (7-40); Albumin 4.4 g/dL (3.2-4.8); Alkaline Phosphatase 74 U/L (46-116); Anion Gap 6 (5-15); Aspartate Aminotransferase 25 U/L (13-40); BUN/Creatinine Ratio 9.5 (10.0-20.0); Blood Urea Nitrogen 11 mg/dL (9-23); Calcium 9.6 mg/dL (8.5-10.1); Carbon Dioxide 25 mmol/L (20-30); Chloride 107 mmol/L (98-107); Glucose 92 mg/dL (74-106); LDL Cholesterol 103 mg/dL (< 100); Sodium 138 mmol/L (136-145); Triglycerides 172 mg/dL (< 150)
[2023-03-16 12:30] LABS: Bilirubin, Total 1.8 mg/dL (0.2-1.0); Cholesterol 164 mg/dL (< 200); HDL Cholesterol 37 mg/dL (40-59); Total Protein 7.1 g/dL (5.7-8.2)
[2023-03-17 15:44] LABS: Urine Bacteria NONE SEEN /hpf (None Seen); Urine Blood Negative /uL (Negative); Urine Clarity HAZY (Clear); Urine Color Yellow (Yellow); Urine Hyaline Cast FEW /lpf (0 - 2); Urine Mucus FEW (None Seen); Urine Protein, UAD Negative (Negative); Urine Specific Gravity 1.026 (1.001-1.035); Urine Urobilinogen Normal (Negative); Urine WBC 1 /hpf (0 - 3)
== END | disposition home or self-care (01) ==
LOC: LAB 11:37
PROVIDERS: ATTEND Internal Medicine
DX: Z13.1 Encounter for screening for diabetes mellitus (principal); Z00.01 Encounter for general adult medical examination with abnormal findings; Z29.9 Encounter for prophylactic measures, unspecified
CPT/HCPCS: 36415; 80053; 80061; 81001; 84439; 84443; 85025

== ENCOUNTER → 2023-07-10 | Outpatient (CLI) | payer OTHER ==
[2023-07-10 12:14] LABS: Basophils # (auto) 0 10 ^3/uL (0-0.2); Basophils % (auto) 0.4 % (0.0-2.0); Eosinophils # (auto) 0.3 10 ^3/uL (0-0.8); Eosinophils % (auto) 3.8 % (0.0-7.0); Hematocrit 43.2 % (41.0-53.0); Hemoglobin 14.5 g/dL (13.5-17.5); Lymphocytes # (auto) 1.9 10 ^3/uL (0.4-5.4); Lymphocytes % (auto) 21.7 % (10.0-50.0); Mean Corpuscular Hemoglobin 30.5 pg (28.0-32.0); Mean Corpuscular Hgb Conc. 33.5 g/dL (32.0-36.0); Mean Corpuscular Volume 91.1 fL (80.0-100.0); Monocytes # (auto) 0.5 10 ^3/uL (0-1.3); Monocytes % (auto) 5.4 % (0.0-12.0); Neutrophils # (auto) 5.9 10 ^3/uL (1.6-8.6); Neutrophils % (auto) 68.7 % (37.0-80.0); Red Blood Cells 4.74 10^6/uL (4.5-5.90); Red Cell Distribution Width 13.4 % (11.8-14.3); White Blood Cell 8.6 10^3/uL (4.4-10.8)
[2023-07-10 12:26] LABS: Urine Bacteria NONE SEEN /hpf (None Seen); Urine Blood Negative /uL (Negative); Urine Clarity Clear (Clear); Urine Color Yellow (Yellow); Urine Mucus FEW (None Seen); Urine Protein, UAD TRACE (Negative); Urine Specific Gravity 1.024 (1.001-1.035); Urine Urobilinogen Normal (Negative); Urine WBC 5 /hpf (0 - 3); Urine pH 5.5 (5.0-8.0)
[2023-07-10 12:38] LABS: Alanine Aminotransferase 15 U/L (7-40); Albumin 4.1 g/dL (3.2-4.8); Alkaline Phosphatase 80 U/L (46-116); Anion Gap 7 (5-15); Aspartate Aminotransferase 16 U/L (13-40); BUN/Creatinine Ratio 9.1 (10.0-20.0); Blood Urea Nitrogen 8 mg/dL (9-23); Calcium 9.5 mg/dL (8.5-10.1); Carbon Dioxide 26 mmol/L (20-30); Chloride 109 mmol/L (98-107); Cholesterol 161 mg/dL (< 200); Glucose 91 mg/dL (74-106); HDL Cholesterol 35 mg/dL (40-59); LDL Cholesterol 108 mg/dL (< 100); Potassium 3.9 mmol/L (3.5-5.1); Sodium 142 mmol/L (136-145); Triglycerides 165 mg/dL (< 150)
[2023-07-10 12:39] LABS: Total Protein 6.6 g/dL (5.7-8.2)
== END | disposition home or self-care (01) ==
LOC: LAB 11:45
PROVIDERS: ATTEND Internal Medicine
DX: Z00.01 Encounter for general adult medical examination with abnormal findings (principal); E78.2 Mixed hyperlipidemia; R79.89 Other specified abnormal findings of blood chemistry
CPT/HCPCS: 36415; 80053; 80061; 81001; 83036; 84439; 84443; 85025

== ENCOUNTER → 2023-10-23 | Outpatient (CLI) | payer OTHER ==
[2023-10-23 12:51] LABS: Urine Bacteria None Seen /hpf (None Seen)
[2023-10-23 13:33] LABS: Urine Blood TRACE /uL (Negative); Urine Budding Yeast OCCASIONAL /hpf (None Seen); Urine Clarity Turbid (Clear); Urine Color Yellow (Yellow); Urine Hyaline Cast FEW /lpf (0 - 2); Urine Mucus MODERATE (None Seen); Urine Protein, UAD 1+ (Negative); Urine Specific Gravity 1.032 (1.001-1.035); Urine Urobilinogen 2 mg/dL (Negative); Urine WBC 20 /hpf (0 - 3); Urine pH 5.5 (5.0-9.0)
== END | disposition home or self-care (01) ==
LOC: LAB 12:38
PROVIDERS: ATTEND Internal Medicine
DX: J44.9 Chronic obstructive pulmonary disease, unspecified (principal); I50.9 Heart failure, unspecified; F03.90 Unspecified dementia, unspecified severity, without behavioral disturbance, psychotic disturbance, mood disturbance, and anxiety
CPT/HCPCS: 81001; 82306; 82607